=== PATIENT | female | born 1970 | race Caucasian/White ===

== ENCOUNTER → 2020-03-07 13:09 | Outpatient (BNVA) | payer BC, SELFPAY | PROVIDERS: PCP Internal Medicine; Visit Provider Obstetrics & Gynecology | DX: Z76.89 Persons encountering health services in other specified circumstances (principal) ==

== ENCOUNTER 2020-03-14 12:35 | Outpatient (REF) | payer BC, SELFPAY ==
--- NOTE | 2020-03-14 13:07 | US_ITS ---
EXAMINATION: PELVIC ULTRASOUND CLINICAL INFORMATION: Vaginal disorder COMPARISON: Previous CT September 2014 TECHNIQUE: Transabdominal and transvaginal pelvic ultrasound was performed. Transvaginal exam was performed for better visualization of the uterus and ovaries. FINDINGS: The uterus is anteverted and measures 8.9 x 4.2 x 6.1 cm in dimension. Uterine echotexture is slightly heterogeneous. No focal uterine lesion is seen. Endometrial thickness measures 0.8 cm. This would be slightly prominent for a postmenopausal patient. There are nabothian cysts in the cervix. There is a 12.9 x 9.1 x 11.9 cm complex right adnexal cyst. This has a solid component with frond-like projections. This demonstrates vascularity and low resistance waveform. There are 2 adjacent left adnexal cysts versus a single cyst with thickened septation. Measured as 2 cysts, there is a 4.6 x 3.4 x 5.6 cm complex cyst with thick septation and solid component with frond-like projections. Again, solid component demonstrates vascularity and low resistance waveform. There is an adjacent simple 3.4 x 2.3 x 2.5 cm cyst. There is a thick wall or septation the 2 cysts that demonstrates vascularity. This finding is new from previous CT from 2014. There is no fluid in the pelvis. IMPRESSION: Large bilateral complex ovarian cysts, right greater than left. Neoplastic process should be considered. CAREER GUIDANCE TECHNICIAN consultation is recommended. Slightly thickened endometrium for a postmenopausal patient. Findings will be communicated by the [place] work flow physical optics teacher.
--- NOTE | 2020-03-14 13:07 | US_ITS ---
EXAMINATION: PELVIC ULTRASOUND CLINICAL INFORMATION: Vaginal disorder COMPARISON: Previous CT September 2014 TECHNIQUE: Transabdominal and transvaginal pelvic ultrasound was performed. Transvaginal exam was performed for better visualization of the uterus and ovaries. FINDINGS: The uterus is anteverted and measures 8.9 x 4.2 x 6.1 cm in dimension. Uterine echotexture is slightly heterogeneous. No focal uterine lesion is seen. Endometrial thickness measures 0.8 cm. This would be slightly prominent for a postmenopausal patient. There are nabothian cysts in the cervix. There is a 12.9 x 9.1 x 11.9 cm complex right adnexal cyst. This has a solid component with frond-like projections. This demonstrates vascularity and low resistance waveform. There are 2 adjacent left adnexal cysts versus a single cyst with thickened septation. Measured as 2 cysts, there is a 4.6 x 3.4 x 5.6 cm complex cyst with thick septation and solid component with frond-like projections. Again, solid component demonstrates vascularity and low resistance waveform. There is an adjacent simple 3.4 x 2.3 x 2.5 cm cyst. There is a thick wall or septation the 2 cysts that demonstrates vascularity. This finding is new from previous CT from 2014. There is no fluid in the pelvis. IMPRESSION: Large bilateral complex ovarian cysts, right greater than left. Neoplastic process should be considered. DIE ENGRAVING SUPERVISOR consultation is recommended. Slightly thickened endometrium for a postmenopausal patient. Findings will be communicated by the [place] work flow brick grader.
== END 2020-03-14 12:36 | disposition home or self-care (01) ==
LOC: HO.US 12:35
PROVIDERS: PCP Internal Medicine; Visit Provider Obstetrics & Gynecology
DX: N95.0 Postmenopausal bleeding (principal); N89.8 Other specified noninflammatory disorders of vagina
CPT/HCPCS: 76830; 76856

== ENCOUNTER 2021-02-16 10:43 | Outpatient (REF) | payer BC, SELFPAY ==
[2021-02-16 11:30] LABS: MANUAL DIFF FLAG NO
[2021-02-16 11:36] LABS: Basophils Percent Auto 0.9 % (0-2); Eosinophils Percent Auto 0.3 % (0-4); Hemoglobin 10.4 g/dl (12.0-16.0); Imm Gran Abs Auto 0.01 X10*3/uL (0.00-0.03); Imm Gran Pct Auto 0.3 % (0.0-0.4); Lymphocytes Percent Auto 30.2 % (20-40); Mean Corpuscular HGB Conc 32.5 g/dl (31.0-35.0); Mean Corpuscular Hemoglobin 32.8 pg (27.0-33.0); Mean Corpuscular Volume 100.9 fL (80-98); Mean Platelet Volume 10.1 fL (9.4-12.3); Monocytes Absolute Auto 0.3 X10*3/uL (0.1-1.2); Monocytes Percent Auto 7.7 % (2-11); Neutrophils Absolute Auto 2.1 X10*3/uL (2.0-8.3); Neutrophils Percent Auto 60.6 % (45-73); Platelet Count 221 X10*3/uL (160-400); Red Blood Count 3.17 X10*6/uL (4.20-5.50); Red Cell Distribution Width 13.2 % (11.0-16.0); White Blood Count 3.4 X10*3/uL (4.8-10.8)
[2021-02-16 11:38] LABS: INTERNATIONAL NORM RATIO 0.9 (0.9-1.1); Prothrombin Time 10.6 SEC (9.9-13.0)
[2021-02-16 11:41] LABS: Partial Thromboplastin Time 35.1 SEC (24.1-38.0)
[2021-02-16 13:01] LABS: Alanine Aminotransferase 52 U/L (0-31); Albumin Level 4.3 g/dL (3.5-5.0); Alkaline Phosphatase 68 U/L (39-117); Anion Gap 14 (12-20); Aspartate Amino Transferase 35 U/L (5-31); Bilirubin Total 0.5 mg/dL (0.0-1.0); Blood Urea Nitrogen 11 mg/dL (9-16); Calcium 9.6 mg/dL (8.4-10.2); Carbon Dioxide 25 mmol/L (22-29); Chloride 105 mmol/L (96-108); Estimated Glomerular Filt Rate > 60; Glucose Random 94 mg/dL (60-115); Potassium 4.5 mmol/L (3.3-5.1); Sodium 139 mmol/L (135-145); Total Protein 6.7 g/dL (6.5-8.0)
== END 2021-02-16 10:44 | disposition home or self-care (01) ==
LOC: HO.LAB 10:43
PROVIDERS: PCP Internal Medicine; Visit Provider Internal Medicine
DX: Z01.818 Encounter for other preprocedural examination (principal)
CPT/HCPCS: 36415; 80053; 85025; 85610; 85730

== ENCOUNTER 2021-11-21 09:27 | Outpatient (REF) | payer BC, SELFPAY ==
[2021-11-21 11:23] LABS: MANUAL DIFF FLAG NO
[2021-11-21 11:32] LABS: Basophils Percent Auto 0.6 % (0-2); Eosinophils Percent Auto 0.4 % (0-4); Hematocrit 35.9 % (37.0-47.0); Imm Gran Abs Auto 0.01 X10*3/uL (0.00-0.03); Imm Gran Pct Auto 0.2 % (0.0-0.4); Immature Retic Fraction 7.6 % (3.0-15.9); Lymphocytes Absolute Auto 1.1 X10*3/uL (1.2-4.9); Mean Corpuscular HGB Conc 33.4 g/dl (31.0-35.0); Mean Corpuscular Hemoglobin 30.1 pg (27.0-33.0); Mean Platelet Volume 10.5 fL (9.4-12.3); Monocytes Absolute Auto 0.3 X10*3/uL (0.1-1.2); Monocytes Percent Auto 6.2 % (2-11); Neutrophils Absolute Auto 3.9 x10*3/uL (2.0-8.3); Neutrophils Percent Auto 72.6 % (45-73); Platelet Count 216 X10*3/uL (160-400); Red Blood Count 3.99 X10*6/uL (4.20-5.50); Red Cell Distribution Width 12.2 % (11.0-16.0); Retic HGB Equivalent 33.7 pg (30.0-35.0); Reticulocytes Absolute 0.039 X10*6/uL (0.026-0.095); White Blood Count 5.3 X10*3/uL (4.8-10.8)
[2021-11-21 12:01] LABS: Alanine Aminotransferase 21 U/L (0-31); Albumin Level 4.5 g/dL (3.5-5.0); Alkaline Phosphatase 70 U/L (39-117); Anion Gap 10 (12-20); Aspartate Amino Transferase 18 U/L (5-31); Bilirubin Total 1.1 mg/dL (0.0-1.0); Blood Urea Nitrogen 11 mg/dL (9-16); Calcium 9.9 mg/dL (8.4-10.2); Carbon Dioxide 32 mmol/L (22-29); Chloride 102 mmol/L (96-108); Cholesterol 204 mg/dL; Estimated Glomerular Filt Rate > 60; Glucose Random 98 mg/dL (60-115); HDL Cholesterol 68 mg/dL; Iron 120 mcg/dL (30-160); LDL Cholesterol Calculated 113 mg/dl; Percent Iron Saturation 32 % (15-50); Potassium 4.1 mmol/L (3.3-5.1); Sodium 140 mmol/L (135-145); Total Iron Binding Capacity 372 mcg/dL (228-428); Total Protein 7.2 g/dL (6.5-8.0); Triglycerides 118 mg/dL; Unsaturated Iron Binding 252 ug/dL
[2021-11-21 12:06] LABS: Free T4 (Free Thyroxine) 1.01 ng/dL (0.71-1.85); Vitamin D 25-OH Total 36.4 ng/mL (>30)
[2021-11-21 12:20] LABS: Folate 16.2 ng/mL (> or = 4.0); Vitamin B12 298 pg/mL (200-900)
== END 2021-11-21 09:28 | disposition home or self-care (01) ==
LOC: HO.HMGCLDS 09:27
PROVIDERS: Visit Provider Internal Medicine
DX: C56.1 Malignant neoplasm of right ovary (principal); C56.2 Malignant neoplasm of left ovary; D64.9 Anemia, unspecified; E78.00 Pure hypercholesterolemia, unspecified
CPT/HCPCS: 36415; 80053; 80061; 82306; 82607; 82746; 83540; 84439; 84443; 85025; 85045

== ENCOUNTER 2022-11-14 06:56 | Outpatient (REF) | payer BC, SELFPAY ==
[2022-11-14 09:09] LABS: MANUAL DIFF FLAG NO
[2022-11-14 09:23] LABS: Basophils Percent Auto 0.7 % (0-2); Eosinophils Percent Auto 0.5 % (0-4); Hematocrit 33.5 % (37.0-47.0); Hemoglobin 10.7 g/dl (12.0-16.0); Imm Gran Abs Auto 0.01 X10*3/uL (0.00-0.03); Imm Gran Pct Auto 0.2 % (0.0-0.4); Lymphocytes Absolute Auto 1.3 X10*3/uL (1.2-4.9); Lymphocytes Percent Auto 29.4 % (20-40); Mean Corpuscular HGB Conc 31.9 g/dl (31.0-35.0); Mean Corpuscular Hemoglobin 28.3 pg (27.0-33.0); Mean Corpuscular Volume 88.6 fL (80.0-98.0); Mean Platelet Volume 10.5 fL (9.4-12.3); Monocytes Absolute Auto 0.3 X10*3/uL (0.1-1.2); Neutrophils Absolute Auto 2.6 x10*3/uL (2.0-8.3); Neutrophils Percent Auto 61.2 % (45-73); Platelet Count 249 X10*3/uL (160-400); Red Blood Count 3.78 X10*6/uL (4.20-5.50); Red Cell Distribution Width 12.5 % (11.0-16.0); White Blood Count 4.3 X10*3/uL (4.8-10.8)
[2022-11-14 10:00] LABS: Alanine Aminotransferase 22 U/L (0-31); Albumin Level 4.1 g/dL (3.5-5.0); Alkaline Phosphatase 73 U/L (39-117); Anion Gap 13 (12-20); Aspartate Amino Transferase 19 U/L (5-31); Bilirubin Total 0.7 mg/dL (0.0-1.0); Blood Urea Nitrogen 16 mg/dL (9-16); Calcium 9.8 mg/dL (8.4-10.2); Carbon Dioxide 31 mmol/L (22-29); Chloride 104 mmol/L (96-108); Cholesterol 171 mg/dL; Estimated Glomerular Filt Rate > 60; Glucose Random 92 mg/dL (60-115); HDL Cholesterol 47 mg/dL; LDL Cholesterol Calculated 106 mg/dl; Sodium 144 mmol/L (135-145); Total Protein 7.1 g/dL (6.5-8.0); Triglycerides 93 mg/dL
[2022-11-14 10:04] LABS: Free T4 (Free Thyroxine) 0.97 ng/dL (0.71-1.85); Thyroid Stimulating Hormone 1.17 uIU/mL (0.32-4.0); Vitamin D 25-OH Total 25.9 ng/mL (>30)
[2022-11-14 10:21] LABS: Folate 12.2 ng/mL (> or = 4.0); Vitamin B12 320 pg/mL (200-900)
== END 2022-11-14 06:57 | disposition home or self-care (01) ==
LOC: HO.HMGCLDS 06:56
PROVIDERS: PCP Internal Medicine; Visit Provider Internal Medicine
DX: C56.3 Malignant neoplasm of bilateral ovaries (principal); E78.00 Pure hypercholesterolemia, unspecified; E55.9 Vitamin D deficiency, unspecified
CPT/HCPCS: 36415; 80053; 80061; 82306; 82607; 82746; 84439; 84443; 85025

== ENCOUNTER 2023-02-17 14:07 | Outpatient (REF) | payer BC, SELFPAY ==
[2023-02-17 16:03] LABS: MANUAL DIFF FLAG NO
[2023-02-17 16:08] LABS: Basophils Percent Auto 0.7 % (0-2); Eosinophils Percent Auto 0.2 % (0-4); Hematocrit 33.4 % (37.0-47.0); Hemoglobin 11.2 g/dl (12.0-16.0); Imm Gran Abs Auto 0.01 X10*3/uL (0.00-0.03); Imm Gran Pct Auto 0.2 % (0.0-0.4); Immature Retic Fraction 12.7 % (3.0-15.9); Lymphocytes Absolute Auto 1.4 X10*3/uL (1.2-4.9); Lymphocytes Percent Auto 34.4 % (20-40); Mean Corpuscular HGB Conc 33.5 g/dl (31.0-35.0); Mean Corpuscular Hemoglobin 29.8 pg (27.0-33.0); Mean Corpuscular Volume 88.8 fL (80.0-98.0); Mean Platelet Volume 11.3 fL (9.4-12.3); Monocytes Absolute Auto 0.3 X10*3/uL (0.1-1.2); Monocytes Percent Auto 7.5 % (2-11); Neutrophils Absolute Auto 2.4 x10*3/uL (2.0-8.3); Platelet Count 212 X10*3/uL (160-400); Red Blood Count 3.76 X10*6/uL (4.20-5.50); Red Cell Distribution Width 13.3 % (11.0-16.0); Retic HGB Equivalent 33.1 pg (30.0-35.0); Reticulocyte Percent 1.1 % (0.5-1.8); Reticulocytes Absolute 0.043 X10*6/uL (0.026-0.095); White Blood Count 4.2 X10*3/uL (4.8-10.8)
[2023-02-17 16:28] LABS: Iron 78 mcg/dL (30-160); Percent Iron Saturation 23 % (15-50); Total Iron Binding Capacity 345 mcg/dL (228-428); Unsaturated Iron Binding 267 ug/dL
[2023-02-17 16:40] LABS: Ferritin 15 ng/mL (10-250)
== END 2023-02-17 14:08 | disposition home or self-care (01) ==
LOC: HO.HMGCLDS 14:07
PROVIDERS: PCP Internal Medicine; Visit Provider Internal Medicine
DX: D64.9 Anemia, unspecified (principal)
CPT/HCPCS: 36415; 82728; 83540; 85025; 85045

== ENCOUNTER 2023-03-03 16:38 | Outpatient (AMB) | payer BC, SELFPAY ==
[2023-03-03 16:47] VITALS: BP 130/78; PULSE 84; O2SAT 99; BMI 23.7
--- NOTE | 2023-03-03 16:47 | A.OFFPC_ITS ---
Vital Signs 03/03/23 16:47 Height 5 ft 6 in Weight 147 lb BMI 23.7 BP 130/78 Blood Pressure Location Lt brachial Position Sitting Pulse 84 Pulse Source Pulse Oximeter Temp Source Skin Pulse Oximetry (%) 99 Oxygen Delivery Method Room Air Intake Visit Reasons: Anemia Merchandise Handler Required: No Allergies No Known Allergies Allergy (Verified 03/03/23 16:48) Tobacco use date assessed: 03/03/23 Dental Screening Dental Screen Date: 03/03/23 Did you have a dental visit in the last 12 months?: Yes Did you have a dental problem in the last 6 months where you did not have access to dental care?: No Was dental information given to patient?: Patient has dentist HPI Anemia HPI Details 52-year-old female with a history of ova hemanth cancer recurrent major depression and chronic anemia coming in for follow-up. Last seen in October 2022. 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 Patient has been doing good with no nausea no vomiting no chest pains no shortness of breath no bladder symptoms has soft bowels patient notes increase in weight and was concerned about bloating/fluid in the abdomen she does not feel any pain but concerned about the weight gain. Patient will be following up with Oncology mid March. [facility] Medical History Anemia Anxiety Depression Hypercholesterolemia Ileostomy in place Ovarian cancer Ovarian mass Preoperative examination Vitamin D deficiency Surgical History History of exploratory laparotomy (~08/25/20) Status post ELVIA-BSO (~04/13/20) Family History (Updated 11/22/22 @ 13:41 by Lori Roberts MD) Mother Lung cancer Paternal Uncle Heart attack Paternal Grandmother Breast cancer Social History Housing: House Alcohol intake: never Patient Tobacco Use Status: Never used Tobacco e-Cigarette/Vaping Use: Never Used Second Hand Smoke Exposure: Yes service: No Current occupational status: employed Sexual orientation: Straight/Heterosexual Gender identity: Female Cognitive needs: No Hearing needs: No Vision needs: Yes Female Reproductive History Menstrual Age of Menarche: 17 Questionnaire Thrive Questionnaire Date Thrive assessed: 11/22/22 AUDIT C Alcohol Use Questionnaire (AUDIT-C) 1. How often do you have a drink containing alcohol?: Never 3. How often do you have six or more drinks on one occasion?: Never Total Score: 0 Score Reviewed/Action Taken: Yes TOYA-7 AMB Questionnaire TOYA-7 Date TOYA - 7 assessed: 11/22/22 Source: Developed by Drs. Van Srivastava, Carley Thakur, Kt Seay and colleagues, with an educational harriet from [employer]. Physical exam (Primary Care) Vital Signs: Last Vital Signs Pulse 84 03/03/23 16:47 BP 130/78 03/03/23 16:47 Pulse Ox 99 03/03/23 16:47 Oxygen Delivery Method Room Air 03/03/23 16:47 BMI result Body Mass Index 23.7 Tobacco/Smoking Status: Tobacco use Status Tobacco use date assessed 03/03/23 03/03/23 16:48 Patient Tobacco Use Status Never used Tobacco 03/03/23 16:48 e-Cigarette/Vaping Use Never Used 03/03/23 16:48 Thrive Assessment: Date of Thrive Assessment Date Thrive assessed 11/22/22 03/03/23 16:48 Const General: alert; No acute distress Eyes Conjunctivae: conjunctivae normal Resp Auscultation: clear to auscultation bilaterally Cardio Rate: regular rate Rhythm: regular rhythm GI Inspection: Yes normal to inspection Extrem General: Yes normal to inspection and No edema Office Procedures Flu Questionnaire Does the patient have a severe egg allergy?: No Does the patient have severe life threatening allergies?: No Does the patient have a fever or illness today?: No Has the patient ever had Guillain-Woodruff Syndrome?: No Has the patient ever had any past reaction to a flu shot?: No Immunizations flu vacc [id number] 6mos up(PF) 60 mcg(15 mcgx4)/0.5 mL IM syringe Performing Provider: Lori Roberts MD Performing Location: [facility] Administered by: MAAME Parra on 03/03/23 16:53 Dose Route Admin Location Dispensed Lot Number Expiration Date NDC Manager Of Development 0.5 mL IM Left Deltoid 0.5 mL [id number] 11/30/23 [id number] [employer] VIS Given Date VIS Provided VIS Publication Date 03/03/23 Single Vaccine 21 Eligibility Eligibility Date Funding Source Not [facility] Eligible 03/03/23 Private Assessment and Plan Assessment & Plan (1) Ovarian cancer: Comment: stage IIIc 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 (2) Recurrent major depression: Code(s): F33.9 - Major depressive disorder, recurrent, unspecified Plan: Continue with venlafaxine and lorazepam as needed (3) Anemia: Code(s): D64.9 - Anemia, unspecified Qualifiers: Anemia type: unspecified type Qualified Code(s): D64.9 - Anemia, unspecified Plan: Continue to monitor. Orders: Orders Influenza [id number] Immunization Today Z23 - Encounter for immunization Coding Level of Care Code Est Pt Level 4 (06886) Diagnoses Malignant neoplasm of both ovaries C56.1; C56.2 Laterality: bilateral Recurrent major depression F33.9 Anemia, unspecified type D64.9 Anemia type: unspecified type
== END 2023-03-03 17:32 | disposition home or self-care (01) ==
PROVIDERS: PCP Internal Medicine; Visit Provider Internal Medicine
DX: C56.1 Malignant neoplasm of right ovary (principal); C56.2 Malignant neoplasm of left ovary; F33.9 Major depressive disorder, recurrent, unspecified; D64.9 Anemia, unspecified; Z23 Encounter for immunization
CPT/HCPCS: 90471; 90686; 99214

== ENCOUNTER 2023-07-11 12:17 | Outpatient (AMB) | payer BC, SELFPAY ==
[2023-07-11 12:21] VITALS: BP 132/78; PULSE 75; TEMP 36.6; O2SAT 98
--- NOTE | 2023-07-11 12:21 | AM.OFFWIN_ITS ---
Intake Vital Signs 07/11/23 12:21 Height 5 ft 6 in BP 132/78 Blood Pressure Location Lt brachial Position Sitting Pulse 75 Pulse Source Pulse Oximeter Temp 97.8 F Temp Source Oral Pulse Oximetry (%) 98 Oxygen Delivery Method Room Air Intake Visit Reasons: EP ?sinus/ear infection Intake Note: pt is here for c.o possible ear infection and possible sinus infection Patient Tobacco Use Status: Never used Tobacco Allergies No Known Allergies Allergy (Verified 07/11/23 12:22) Do you need a note to return to daycare/school/sports/work: Yes HPI EP ?sinus/ear infection HPI Details This is a 53 year old female patient who presents today with a 1 week history of sinus pressure and left ear pressure, primarily on the left side. She has had some nasal congestion but denies any cough or shortness of breath. Denies know exposure to sick contacts. Denies any fever. [facility] Medical History Anxiety Ovarian cancer Ileostomy in place Preoperative examination Vitamin D deficiency Anemia Ovarian mass Hypercholesterolemia Depression Surgical History History of exploratory laparotomy (~08/25/20) Status post ELVIA-BSO (~04/13/20) Family History Mother Lung cancer Paternal Uncle Heart attack Paternal Grandmother Breast cancer Social History Housing: House Alcohol intake: never Patient Tobacco Use Status: Never used Tobacco e-Cigarette/Vaping Use: Never Used Second Hand Smoke Exposure: Yes service: No Current occupational status: employed Sexual orientation: Straight/Heterosexual Gender identity: Female Cognitive needs: No Hearing needs: No Vision needs: Yes Female Reproductive History Menstrual Age of Menarche: 17 Review of Systems Const All systems reviewed & are unremarkable except as noted in HPI and below Physical Exam Const General: cooperative and no acute distress HEENT Head: Yes normal to inspection Ears: hearing grossly normal bilaterally, external ears normal and TM's normal b ilaterally General nose exam: Normal external nose present and Normal nasal mucous membranes and turbinates present Face and sinus: Yes sinus tenderness (maxillary ttp, L>R) Mouth: Normal oral and palatal mucosa present and oropharynx normal Throat: Yes posterior oropharynx normal Neck Neck: Yes no lymphadenopathy Resp Effort & Inspection: normal respiratory effort Auscultation: clear to auscultation bilaterally Cardio Rate: regular rate Rhythm: regular rhythm Skin General skin exam: no rashes or lesions noted Extrem General: Yes capillary refill normal and Yes no clubbing, cyanosis or edema Psych Appearance: grossly normal Mental Status: mental status grossly normal Speech and movement: Normal speech and movement present Assessment & Plan Assessment & Plan (1) Acute maxillary sinusitis: Code(s): J01.00 - Acute maxillary sinusitis, unspecified Qualifiers: Recurrence: non-recurrent Qualified Code(s): J01.00 - Acute maxillary sinusitis, unspecified Plan: Will start on an antibiotic. Reviewed indications, use, possible side effects of medication. Advised she also start taking an otc decongestant. Encouraged adequate hydration and healthy diet/vitamin intake. She declines any viral testing today. If she does not improve with treatment or if symptoms worsen/new symptoms develop, she can return to the clinic for further evaluation. She verbalizes understanding and agrees to plan. Medications: New azithromycin For 250 mg dose pack: take 500 mg today (day 1), then 250 mg for 4 days (days 2-5) PO. Do not take ondansetron while on this medication. 6 tabs 0RF J01.00 - Acute maxillary sinusitis, unspecified Coding Level of Care Code Est Pt Level 3 (82669) Diagnoses Acute non-recurrent maxillary sinusitis J01.00 Recurrence: non-recurrent
== END 2023-07-11 12:57 | disposition home or self-care (01) ==
PROVIDERS: PCP Internal Medicine; Visit Provider Nurse Practitioner Family
DX: J01.00 Acute maxillary sinusitis, unspecified (principal)
CPT/HCPCS: 99213

== ENCOUNTER 2024-04-01 15:54 | Outpatient (AMB) | payer BC, SELFPAY ==
--- NOTE | 2024-04-01 15:57 | MHC.PC.OV ---
Vital Signs 04/01/24 15:59 04/01/24 16:16 Height 5 ft 6 in BP 152/76 H 138/82 Blood Pressure Location Lt brachial Lt brachial Position Sitting Sitting Pulse 89 Pulse Source Pulse Oximeter Pulse Oximetry (%) 98 Oxygen Delivery Method Room Air Intake Visit Reasons: [facility] 03/11 BP, Electrolyte Imbalance, Headache Intake Note: Patient is here to follow-up after a visit the emergency department at [facility] on 03/11/24 Allergies No Known Allergies Allergy (Verified 04/01/24 15:57) Medication List - Last Reconciled 04/01/24 by Anais Sparks PA-C amlodipine 5 mg PO DAILY lorazepam 1 mg PO TID PRN 90 days magnesium oxide 400 mg PO BID metoprolol tartrate 12.5 mg PO BID ondansetron HCl 8 mg PO TID prochlorperazine maleate 10 mg PO Q6H PRN venlafaxine ER 75 mg PO DAILY 90 days venlafaxine ER 150 mg PO DAILY 90 days Tobacco use date assessed: 01/26/24 Dental Screening Dental Screen Date: 01/26/24 HPI [facility] 03/11 BP, Electrolyte Imbalance, Headache HPI Details 53-year-old female with past medical history of ovarian cancer, recurrent major depression, and anemia last seen by Dr. Roberts January 2024 coming in for hospital discharge follow up.? In review of the notes, patient was seen in [facility] ED 03/11/2024 with high blood pressure and headache and found to have new onset atrial fibrillation admitted for further observation.?Atrial fibrillation likely in the setting of profound electrolyte abnormalities and magnesium and potassium were replaced advised to start metoprolol 25 mg daily. Patient follows with [facility] every 21 days for regular infusions. She has an appointment April 08 and her oncologist we will test for magnesium and potassium prior to the treatment. She has been feeling generally better without any nausea or vomiting and headaches have been improving as well. She has an appointment to see [facility] Cardiology 04/12/2024. She continues to take the metoprolol and amlodipine without any side effects and denies any palpitations or heart racing. [facility] Medical History Anxiety Ovarian cancer Ileostomy in place Preoperative examination Vitamin D deficiency Anemia Ovarian mass Hypercholesterolemia Depression Surgical History History of exploratory laparotomy (~08/25/20) Status post ELVIA-BSO (~04/13/20) Family History Mother Lung cancer Paternal Uncle Heart attack Paternal Grandmother Breast cancer Social History Housing: House Alcohol intake: never Patient Tobacco Use Status: Never used Tobacco e-Cigarette/Vaping Use: Never Used Second Hand Smoke Exposure: Yes service: No Current occupational status: employed Sexual orientation: Straight/Heterosexual Gender identity: Female Cognitive needs: No Hearing needs: No Vision needs: Yes Female Reproductive History Menstrual Age of Menarche: 17 Questionnaire Thrive Questionnaire Date Thrive assessed: 01/26/24 I am a: Patient What is your living situation today?: I have a steady place to live Within the past 12 months, did the food you bought not last and you didn't have the money to get more?: Never true Within the past 12 months, did you worry whether your food would run out before you got money to buy more?: Never true Do you have trouble paying for medicines?: No Do you have trouble getting transportation to medical appointments?: No Do you have trouble paying your heating and electricity bill?: No Do you have trouble taking care of your child, family member or friend?: No Do you have trouble with day-to-day activities such as bathing, preparing meals, shopping, managing finances, etc.?: No Are you currently unemployed and looking for a job?: No Are you interested in more education?: No Please select the resources that you would like help with: None Currently or been in a relationship where the following occur: No concerns reported THRIVE Score: 0 AUDIT C Alcohol Use Questionnaire (AUDIT-C) 1. How often do you have a drink containing alcohol?: Never 3. How often do you have six or more drinks on one occasion?: Never Total Score: 0 TOYA-7 AMB Questionnaire TOYA-7 Date TOYA - 7 assessed: 01/26/24 Source: Developed by Drs. Van Srivastava, Carley Thakur, Kt Seay and colleagues, with an educational harriet from [employer]. Review of Systems Const Denies body aches, Denies chills, Denies fever(s), Denies headache(s) and Denies poor appetite Eyes Reports no additional complaints ENT Denies dizziness and Denies headache(s) Card Denies chest pain, Denies edema, Denies irregular heart rhythm, Denies lightheadedness and Denies dyspnea Resp Denies dyspnea GI Denies abdominal pain, Denies diarrhea, Denies nausea and Denies vomiting Musc Reports no additional complaints and Denies abnormal gait Skin/Breast Reports system reviewed and no additional complaints, except as documented Neuro Denies abnormal gait, Denies dizziness and Denies headache(s) Psych Reports no additional complaints Physical exam (Primary Care) Vital Signs: Last Vital Signs Pulse 89 04/01/24 15:59 BP 138/82 04/01/24 16:16 Pulse Ox 98 04/01/24 15:59 Oxygen Delivery Method Room Air 04/01/24 15:59 Tobacco/Smoking Status: Tobacco use Status Tobacco use date assessed 01/26/24 04/01/24 16:01 Patient Tobacco Use Status Never used Tobacco 04/01/24 16:01 e-Cigarette/Vaping Use Never Used 04/01/24 16:01 Thrive Assessment: Date of Thrive Assessment Date Thrive assessed 01/26/24 04/01/24 16:01 Currently or been in a relationship where the following occur: No concerns reported Const General: cooperative, healthy appearing, comfortable and no acute distress Orientation/consciousness: patient oriented x3 HENMT Head: Yes normocephalic Ears: hearing grossly normal bilaterally General nose exam: Normal external nose present Eyes General: appearance normal, both eyes and all related structures Conjunctivae: conjunctivae normal Neck Neck: Yes full ROM and Yes no lymphadenopathy Resp Effort & Inspection: normal respiratory effort Auscultation: clear to auscultation bilaterally, no crackles, no rales, no rhonchi and no wheezes Cardio Rate: regular rate Rhythm: regular rhythm Skin General skin exam: no rashes or lesions noted Neuro General: patient oriented x3 Gait exam (Neuro): Normal gait present Extrem General: Yes normal to inspection, Yes full ROM and No edema Psych Affect: normal affect Attitude: cooperative Insight: Good insight present (Psych) Judgement: Good judgement present (Psych) Coding Level of Care Code Est Pt Level 3 (70833) Diagnoses Elevated blood pressure reading R03.0 Iron deficiency anemia D50.9 Atrial fibrillation I48.91 Assessment & Plan Assessment & Plan (1) Elevated blood pressure reading: Comment: side effect of chemotehrapy Code(s): R03.0 - Elevated blood-pressure reading, without diagnosis of hypertension Category: Medical Plan: Blood pressure continues to be elevated as a side effect chemotherapy. She continues to follow with her oncologist who is aware of the situation. Advised to continue on amlodipine and metoprolol which has good effect of the blood pressure at this time. (2) Iron deficiency anemia: Code(s): D50.9 - Iron deficiency anemia, unspecified Category: Medical Plan: Continue on iron supplementation and continue to follow up with oncologist. (3) Atrial fibrillation: Code(s): I48.91 - Unspecified atrial fibrillation Category: Medical Plan: Patient was recently admitted to [facility] for new onset atrial fibrillation believed to be induced by found electrolyte abnormality. Electrolytes normalized and patient returned back to normal sinus rhythm advised to follow up with Cardiology per ER recommendation and continue on metoprolol for rate control. Electrolytes will be redrawn at her April 08 appointment by her oncologist. Discussed with patient the importance of staying well hydrated and replete electrolytes. If she experiences nausea and vomiting again to be very cautious and present to the ER for re-evaluation. Plan This note was constructed using voice recognition software. While every effort has been made to ensure accuracy and mattress packer, still areas may have been included sometimes these areas may affect the content or meeting of the given symptoms. Total time spent caring for the patient today was 30 minutes. This includes time spent before the visit reviewing the chart, time spent during the visit, and time spent after the visit and documentation. Medications: New metoprolol tartrate 25 mg PO BID
[2024-04-01 15:59] VITALS: BP 152/76; PULSE 89; O2SAT 98
[2024-04-01 16:16] VITALS: BP 138/82
== END 2024-04-01 16:34 | disposition home or self-care (01) ==
LOC: HO.HMCH 15:54
PROVIDERS: PCP Internal Medicine
DX: R03.0 Elevated blood-pressure reading, without diagnosis of hypertension (principal); D50.9 Iron deficiency anemia, unspecified; I48.91 Unspecified atrial fibrillation

== ENCOUNTER → 2024-04-01 15:54 | Outpatient (BNVA) | payer BC, SELFPAY | PROVIDERS: PCP Internal Medicine ==

== ENCOUNTER 2024-06-05 10:14 | Outpatient (REF) | payer BC, SELFPAY ==
--- NOTE | ~2024-06-05 | XR_ITS ---
CLINICAL HISTORY: SINUSITIS Radiographs of the sinuses, 5 views Comparison: None Findings: No fracture or dislocation. The paranasal sinuses and mastoid air cells are clear. Bone mineralization is normal. No soft tissue swelling. Impression: No radiographic evidence of sinusitis. This document has been electronically signed by: Maryam Medley MD on 06/07/2024 16:29:48
== END 2024-06-05 10:15 | disposition home or self-care (01) ==
LOC: HO.XRAY 10:14
PROVIDERS: PCP Internal Medicine; Visit Provider Otolaryngology
DX: J01.90 Acute sinusitis, unspecified (principal)
CPT/HCPCS: 70220

== ENCOUNTER → 2024-06-05 10:40 | Outpatient (BNV) | payer BC, SELFPAY | PROVIDERS: PCP Internal Medicine; Visit Provider Radiology Diagnostic Radiology | DX: J01.00 Acute maxillary sinusitis, unspecified (principal) | CPT/HCPCS: 70220 ==

== ENCOUNTER 2024-06-07 17:13 | Outpatient (AMB) | payer BC, SELFPAY ==
[2024-06-07 17:16] VITALS: BP 148/88; PULSE 81; O2SAT 98; BMI 22.9
--- NOTE | 2024-06-07 17:16 | MHC.PC.OV ---
Vital Signs 06/07/24 17:16 Height 5 ft 6 in Weight 142 lb BMI 22.9 BP 148/88 H Blood Pressure Location Lt brachial Position Sitting Pulse 81 Pulse Source Pulse Oximeter Pulse Oximetry (%) 98 Oxygen Delivery Method Room Air Intake Visit Reasons: anemia Allergies No Known Allergies Allergy (Verified 06/07/24 17:17) Medication List - Last Reconciled 06/07/24 by Lori Roberts MD amlodipine 5 mg PO DAILY lorazepam 1 mg PO TID PRN 90 days metoprolol tartrate 25 mg PO BID ondansetron HCl 8 mg PO TID venlafaxine ER 75 mg PO DAILY 90 days venlafaxine ER 150 mg PO DAILY 90 days Tobacco use date assessed: 06/07/24 Dental Screening Dental Screen Date: 06/07/24 Did you have a dental visit in the last 12 months?: Yes Did you have a dental problem in the last 6 months where you did not have access to dental care?: No Was dental information given to patient?: Patient has dentist HPI anemia HPI Details 54-year-old female with a history of ovarian cancer recurrent major depression iron deficiency anemia atrial fibrillation last seen earlier this year review of the notes continues to have chemotherapy and had nausea and vomiting and was in the emergency room found to have atrial fibrillation with rapid ventricular rate. Patient was also found to have hypokalemia as well as hypomagnesemia. Replacement done and patient converted back to normal sinus. Patient has met with Cardiology and ejection fraction if it is normal with no valvular abnormality. Patient was advised aspirin and no long-term anticoagulation unless recurrence of atrial fibrillation. Patient was advised to keep magnesium above 2 and potassium above 4. Patient comes here for follow-up with blood work showing potassium P before magnesium to be 1.6 but no additional magnesium given. Patient also had blood work done in that hospital [facility] showing hypercholesterolemia to 185 LDL but no treatment done. As for the blood pressure patient was supposed to be on the notes change from amlodipine to metoprolol but patient comes in with both metoprolol and amlodipine. But the blood pressure has run high also patient otherwise feels good [facility] Medical History (Updated 06/07/24 @ 17:49 by Lori Roberts MD) Anxiety Ovarian cancer Ileostomy in place Preoperative examination Vitamin D deficiency Anemia Ovarian mass Hypercholesterolemia Depression Surgical History History of exploratory laparotomy (~08/25/20) Status post [facility]-BSO (~04/13/20) Family History Mother Lung cancer Paternal Uncle Heart attack Paternal Grandmother Breast cancer Social History Housing: House Alcohol intake: never Patient Tobacco Use Status: Never used Tobacco Tobacco use type: Cigarette e-Cigarette/Vaping Use: Never Used Second Hand Smoke Exposure: Yes service: No Current occupational status: employed Sexual orientation: Straight/Heterosexual Gender identity: Female Cognitive needs: No Hearing needs: No Vision needs: Yes Female Reproductive History Menstrual Age of Menarche: 17 Questionnaire PHQ-9 Over the last 2 weeks, how often have you been bothered by any of the following problems? 1. Little interest or pleasure in doing things: not at all 2. Feeling down, depressed, or hopeless: not at all 3. Trouble falling or staying asleep, or sleeping too much: not at all 4. Feeling tired or having little energy: not at all 5. Poor appetite or overeating: not at all 6. Feeling bad about yourself - or that you are a failure or have let yourself or your family down: not at all 7. Trouble concentrating on things, such as reading the newspaper or watching television: not at all 8. Moving or speaking so slowly that other people could have noticed. Or the opposite - being so fidgety or restless that you have been moving around a lot more than usual: not at all 9. Thoughts that you would be better off or of hurting yourself in some way: not at all Total score: 0 Depression Screening Interpretation: Negative Depression Screening Done: Yes 29341 - PHQ-9 Billing: Yes Source: Developed by Drs. Van Srivastava, Carley Thakur, Kt Seay and colleagues, with an educational harriet from [employer]. Thrive Questionnaire Date Thrive assessed: 06/07/24 I am a: Patient What is your living situation today?: I have a steady place to live Within the past 12 months, did the food you bought not last and you didn't have the money to get more?: Never true Within the past 12 months, did you worry whether your food would run out before you got money to buy more?: Never true Do you have trouble paying for medicines?: No Do you have trouble getting transportation to medical appointments?: No Do you have trouble paying your heating and electricity bill?: No Do you have trouble taking care of your child, family member or friend?: No Do you have trouble with day-to-day activities such as bathing, preparing meals, shopping, managing finances, etc.?: No Are you currently unemployed and looking for a job?: No Are you interested in more education?: No Please select the resources that you would like help with: None Currently or been in a relationship where the following occur: No concerns reported THRIVE Score: 0 AUDIT C Alcohol Use Questionnaire (AUDIT-C) 1. How often do you have a drink containing alcohol?: Never 3. How often do you have six or more drinks on one occasion?: Never Total Score: 0 TOYA-7 AMB Questionnaire TOYA-7 Date TOYA - 7 assessed: 06/07/24 Feeling nervous, anxious, or on edge: 0 = Not at all Not being able to stop or control worryin = Not at all Worrying too much about different things: 0 = Not at all Trouble relaxin = Not at all Being so restless that it is hard to sit still: 0 = Not at all Becoming easily annoyed or irritable: 0 = Not at all Feeling afraid as if something awful might happen: 0 = Not at all Total TOYA-7 score (0-4 normal; 5-9 mild; 10-14 moderate; 15-21 severe): 0 Source: Developed by Drs. Van Srivastava, Carley Thakur, Kt Seay and colleagues, with an educational harriet from [employer]. Physical exam (Primary Care) Vital Signs: Last Vital Signs Pulse 81 06/07/24 17:16 BP 148/88 H 06/07/24 17:16 Pulse Ox 98 06/07/24 17:16 Oxygen Delivery Method Room Air 06/07/24 17:16 BMI result Body Mass Index 22.9 Tobacco/Smoking Status: Tobacco use Status Tobacco use date assessed 06/07/24 06/07/24 17:23 Patient Tobacco Use Status Never used Tobacco 06/07/24 17:23 Tobacco use type Cigarette 06/07/24 17:23 e-Cigarette/Vaping Use Never Used 06/07/24 17:23 PHQ-9: PHQ-9 Score PHQ-9: Total score 0 06/07/24 17:23 Depression Screening Interpretation: Negative Thrive Assessment: Date of Thrive Assessment Date Thrive assessed 06/07/24 06/07/24 17:23 Currently or been in a relationship where the following occur: No concerns reported Const General: alert; No acute distress Eyes Conjunctivae: conjunctivae normal Resp Auscultation: clear to auscultation bilaterally Cardio Rate: regular rate Rhythm: regular rhythm GI Inspection: Yes normal to inspection Extrem General: Yes normal to inspection and No edema Coding Level of Care Code Est Pt Level 4 (20339) Complex EM visit Add On G2211 Diagnoses Atrial fibrillation I48.91 Iron deficiency anemia D50.9 Malignant neoplasm of both ovaries C56.1; C56.2 Laterality: bilateral Recurrent major depression F33.9 Hypercholesterolemia E78.00 Hypertension I10 Additional Codes PHQ-9 - 96361 - PHQ-9 Billing: Yes ([id number]) Assessment & Plan Assessment & Plan (1) Atrial fibrillation: Comment: 04/2024 hypokalemia and hypomagnesemia, secondary chemotherapy Code(s): I48.91 - Unspecified atrial fibrillation Category: Medical Plan: Deemed to be secondary to chemotherapy having nausea and vomiting and hypokalemia and hypomagnesemia. If this happens again then will need lifelong anticoagulation. 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 (4) Recurrent major depression: Comment: decline counselling Code(s): F33.9 - Major depressive disorder, recurrent, unspecified Category: Medical Plan: Continue with present medication (5) Hypercholesterolemia: Code(s): E78.00 - Pure hypercholesterolemia, unspecified Category: Medical Plan: With the new changes in cholesterol labs will do repeat fasting blood work (6) Hypertension: Code(s): I10 - Essential (primary) hypertension Category: Medical Plan: With the blood pressure being elevated will continue with the amlodipine but increase the metoprolol to 50 mg twice a day and follow-up. Orders: Orders Lipid Panel Today E78.00 - Pure hypercholesterolemia, unspecified Complete Blood Count Auto Diff Today E78.00 - Pure hypercholesterolemia, unspecified Magnesium Today E78.00 - Pure hypercholesterolemia, unspecified Phosphorus Today E78.00 - Pure hypercholesterolemia, unspecified Thyroid Stimulating Hormone Today E78.00 - Pure hypercholesterolemia, unspecified Vitamin B12 and Folate Today E78.00 - Pure hypercholesterolemia, unspecified Vitamin D 25-OH Total Today E78.00 - Pure hypercholesterolemia, unspecified Comprehensive Met. Panel Today E78.00 - Pure hypercholesterolemia, unspecified Free T4 (Free Thyroxine) Today E78.00 - Pure hypercholesterolemia, unspecified Medications: New metoprolol tartrate 50 mg PO BID 60 tabs 4RF I10 - Essential (primary) hypertension
== END 2024-06-07 17:56 | disposition home or self-care (01) ==
PROVIDERS: PCP Internal Medicine; Visit Provider Internal Medicine
DX: I48.91 Unspecified atrial fibrillation (principal); C56.1 Malignant neoplasm of right ovary; C56.2 Malignant neoplasm of left ovary; F33.9 Major depressive disorder, recurrent, unspecified; D50.9 Iron deficiency anemia, unspecified; E78.00 Pure hypercholesterolemia, unspecified; I10 Essential (primary) hypertension

== ENCOUNTER → 2024-06-07 17:13 | Outpatient (BNVA) | payer BC, SELFPAY | PROVIDERS: PCP Internal Medicine; Visit Provider Internal Medicine | DX: I48.91 Unspecified atrial fibrillation (principal); D50.9 Iron deficiency anemia, unspecified; C56.1 Malignant neoplasm of right ovary; C56.2 Malignant neoplasm of left ovary; F33.9 Major depressive disorder, recurrent, unspecified; E78.00 Pure hypercholesterolemia, unspecified; I10 Essential (primary) hypertension; Z79.899 Other long term (current) drug therapy | CPT/HCPCS: 96127 ==

== ENCOUNTER 2024-06-24 11:47 | Outpatient (AMB) | payer BC, SELFPAY ==
--- NOTE | 2024-06-24 11:47 | A.OFFPC_ITS ---
Intake Visit Reasons: Cold Symptoms [id number] Intake Note: Patient is taking Dayquil/Nyquil PRN. Allergies No Known Allergies Allergy (Verified 06/24/24 11:48) Tobacco use date assessed: 06/07/24 Dental Screening Dental Screen Date: 06/07/24 HPI Cold Symptoms [id number] HPI Details headache sneezing, cough, 1 week, no fevers, chills,, non productive , nild sob , covid 19 negative The patient is a 54-year-old female presenting with symptoms of an acute respir atory illness. She reports that her symptoms began approximately one week ago. Symptoms include a severe headache, rhinorrhea, sneezing, and cough causing rib and back pain. Although she initially had a fever, it is no longer present; however, she experiences occasional chills. The patient reports that her symptoms appear to be worsening over the past week. She has noticed mild shortness of breath. There has been no significant alleviation despite self-care measures. She has tested negative for COVID-19. No previous diagnosis or treatment for these symptoms has been reported. - Respiratory: Reports mild shortness of breath, denies any significant dyspnea. - General: Reports chills, previously re ported fever which is now resolved. - Musculoskeletal: Reports rib and back pain secondary to coughing. - HEENT: Reports severe headache. [facility] Medical History (Updated 06/24/24 @ 12:15 by Lori Roberts MD) Anxiety Ovarian cancer Ileostomy in place Preoperative examination Vitamin D deficiency Anemia Ovarian mass Hypercholesterolemia Depression Surgical History History of exploratory laparotomy (~08/25/20) Status post [facility]-BSO (~04/13/20) Family History Mother Lung cancer Paternal Uncle Heart attack Paternal Grandmother Breast cancer Social History Housing: House Alcohol intake: never Patient Tobacco Use Status: Never used Tobacco Tobacco use type: Cigarette e-Cigarette/Vaping Use: Never Used Second Hand Smoke Exposure: Yes service: No Current occupational status: employed Sexual orientation: Straight/Heterosexual Gender identity: Female Cognitive needs: No Hearing needs: No Vision needs: Yes Female Reproductive History Menstrual Age of Menarche: 17 Questionnaire PHQ-9 Over the last 2 weeks, how often have you been bothered by any of the following problems? 1. Little interest or pleasure in doing things: not at all 2. Feeling down, depressed, or hopeless: not at all 3. Trouble falling or staying asleep, or sleeping too much: not at all 4. Feeling tired or having little energy: not at all 5. Poor appetite or overeating: not at all 6. Feeling bad about yourself - or that you are a failure or have let yourself or your family down: not at all 7. Trouble concentrating on things, such as reading the newspaper or watching television: not at all 8. Moving or speaking so slowly that other people could have noticed. Or the opposite - being so fidgety or restless that you have been moving around a lot more than usual: not at all 9. Thoughts that you would be better off or of hurting yourself in some way: not at all Total score: 0 Depression Screening Interpretation: Negative Depression Screening Done: Yes 99012 - PHQ-9 Billing: Yes Source: Developed by Drs. Van Srivastava, Carley Thakur, Kt Seay and colleagues, with an educational harriet from [employer] Thrive Questionnaire Date Thrive assessed: 06/07/24 AUDIT C Alcohol Use Questionnaire (AUDIT-C) 1. How often do you have a drink containing alcohol?: Never 3. How often do you have six or more drinks on one occasion?: Never Total Score: 0 TOYA-7 AMB Questionnaire TOYA-7 Date TOYA - 7 assessed: 06/07/24 Source: Developed by Drs. Van Srivastava, Carley Thakur, Kt Seay and colleagues, with an educational harriet from [employer] Physical exam (Primary Care) Tobacco/Smoking Status: Tobacco use Status Tobacco use date assessed 06/07/24 06/24/24 11:48 Patient Tobacco Use Status Never used Tobacco 06/24/24 11:48 Tobacco use type Cigarette 06/24/24 11:48 e-Cigarette/Vaping Use Never Used 06/24/24 11:48 PHQ-9: PHQ-9 Score PHQ-9: Total score 0 06/24/24 11:48 Depression Screening Interpretation: Negative Thrive Assessment: Date of Thrive Assessment Date Thrive assessed 06/07/24 06/24/24 11:48 Telehealth Telehealth Location of provider rendering services: practice address Location of patient: address on file Patient Identification confirmed using: Name, : Yes Telehealth method: voice only (Android) Patient verbally consented to treatment: Yes Patient verbally consented to billing insurance company: Yes Patient informed of any privacy concerns related to visit: Yes Minutes spent on Phone/Video with Pt.: 15 Coding Level of Care Code Tele Est Pt Level 3 (47180) Diagnoses Upper respiratory infection J06.9 Additional Codes PHQ-9 - 92464 - PHQ-9 Billing: Yes ([id number]) Assessment & Plan Assessment & Plan (1) Upper respiratory infection: Code(s): J06.9 - Acute upper respiratory infection, unspecified Category: Medical Plan - Prescribe antibiotic therapy based on clinical suspicion of bacterial involvement but . - Recommend further testing for Influenza and respiratory syncytial virus RSV) at the hospital. - Ensure antibiotic prescription is filled at the pharmacy, instruct on dosing regimen: two tablets on the first day, followed by one tablet daily for the next four days. The patient and I discussed the likely viral etiology of her symptoms, with considerations for influenza and RSV, based on prevalent local respiratory infections. I emphasized the importance of ruling out these conditions through testing at the hospital. A decision was made to prescribe an antibiotic due to the severity and persistence of symptoms, given her history and the fact that a foster child in her household was diagnosed with the flu and an ear infection. She consented to the treatment plan, including the antibiotic regimen. I advised her regarding monitoring symptoms and discussed potential reasons for further evaluation. - Take the prescribed antibiotics as directed: two tablets on the first day, then one daily for the next four days. - Maintain hydration, ensure to drink ample water. - Visit the hospital for additional testing for Influenza and RSV. - Monitor symptoms and seek further medical care if there is no improvement or if symptoms worsen. 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 Orders: Orders SARS-CoV2/FLU/RSV Today J06.9 - Acute upper respiratory infection, unspecified Medications: New azithromycin (Zithromax) For 250 mg dose pack: take 500 mg today (day 1), then 250 mg for 4 days (days 2-5) PO 6 tabs 0RF J06.9 - Acute upper respiratory infection, unspecified
== END 2024-06-24 12:38 | disposition home or self-care (01) ==
LOC: HO.HMCH 11:47
PROVIDERS: PCP Internal Medicine; Visit Provider Internal Medicine
DX: J06.9 Acute upper respiratory infection, unspecified (principal)

== ENCOUNTER → 2024-06-24 11:47 | Outpatient (BNVA) | payer BC, SELFPAY | PROVIDERS: PCP Internal Medicine; Visit Provider Internal Medicine | DX: J06.9 Acute upper respiratory infection, unspecified (principal) | CPT/HCPCS: 96127 ==

== ENCOUNTER 2024-06-25 11:26 | Outpatient (REF) | payer BC, SELFPAY ==
[2024-06-25 12:27] LABS: Basophils Percent Auto 0.4 % (0-2); Eosinophils Percent Auto 0.4 % (0-4); Hematocrit 35.7 % (37.0-47.0); Hemoglobin 11.7 g/dl (12.0-16.0); Imm Gran Abs Auto 0.01 X10*3/uL (0.00-0.03); Imm Gran Pct Auto 0.4 % (0.0-0.4); Immature Retic Fraction 8.4 % (3.0-15.9); Lymphocytes Absolute Auto 1.4 X10*3/uL (1.2-4.9); Lymphocytes Percent Auto 56.6 % (20-40); MANUAL DIFF FLAG SCAN; Mean Corpuscular HGB Conc 32.8 g/dl (31.0-35.0); Mean Corpuscular Hemoglobin 30.5 pg (27.0-33.0); Mean Platelet Volume 10.2 fL (9.4-12.3); Monocytes Absolute Auto 0.2 X10*3/uL (0.1-1.2); Monocytes Percent Auto 7.2 % (2-11); Neutrophils Absolute Auto 0.9 x10*3/uL (2.0-8.3); Platelet Count 150 X10*3/uL (160-400); Red Blood Count 3.84 X10*6/uL (4.20-5.50); Red Cell Distribution Width 12.8 % (11.0-16.0); Retic HGB Equivalent 30.8 pg (30.0-35.0); Reticulocyte Percent 0.8 % (0.5-1.8); Reticulocytes Absolute 0.029 X10*6/uL (0.026-0.095); SCAN SMEAR FLAG 1
[2024-06-25 12:28] LABS: White Blood Count 2.5 X10*3/uL (4.8-10.8)
[2024-06-25 12:55] LABS: SLIDE REVIEW VERIFIED
[2024-06-25 13:15] LABS: Influenza A PCR POSITIVE (Negative); Influenza B PCR NEGATIVE (Negative); Resp Syncy Virus RNA Qual PCR NEGATIVE (Negative); SARS COV2 PCR INHOUSE NEGATIVE (Negative)
--- OUTSIDE RECORDS SUMMARY | 2024-06-25 13:41 | XMS_ITS | Clinical Summary ---
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 Name Role Phone Lori Roberts MD Primary Care Provider [phone] Allergies No known active allergies Medications ondansetron (ZOFRAN) 8 MG tablet Take 8 mg by mouth every 8 (eight) hours if needed for nausea or vomiting Active prochlorperazine (COMPAZINE) 10 MG tablet Take 10 mg by mouth every 6 (six) hours if needed for nausea or vomiting Active ibuprofen (ADVIL,MOTRIN) 600 MG tablet Take 600 mg by mouth every 6 (six) hours if needed for mild pain Active PARoxetine (PAXIL) 40 MG tablet Take 40 mg by mouth at bed time Active lidocaine (LIDODERM) 5 % patch APPLY 1 PATCH TOPICALLY DAILY 0 Active LORazepam (ATIVAN) 1 MG tablet Take 1 mg by mouth 2 (two) times a day if needed 0 Active ondansetron ODT (ZOFRAN-ODT) 4 MG dispersible tablet TAKE 1 TABLET BY MOUTH EVERY 8 HOURS NEEDED FOR NAUSEA/VOMITIN G 0 Active Active Problems Problem Noted Date Diagnosed Date Anxiety 05/04/2020 Depressive disorder 05/04/2020 Ovarian cancer 05/04/2020 Social History Tobacco Use Types Packs/Day Years Used Date Smoking Tobacco: Never Assessed Comments Unknown Sex and Gender Information Value Date Recorded Sex Assigned at Not on file Legal Sex Female 1:14 PM EST Gender Identity Not on file Sexual Orientation Not on file Last Filed Vital Signs Vital Sign Reading Time Taken Comments Blood Pressure 105/69 05/10/2020 2:11 PM EST Pulse 113 05/10/2020 2:11 PM EST Temperature 36.2 ??C (97.1 ??F) 05/10/2020 2:11 PM ES T Respiratory Rate 12 05/10/2020 2:11 PM EST Oxygen Saturation 97% 05/10/2020 2:11 PM EST Inhaled Oxygen Concentration - - Weight 59 kg (130 lb) 05/10/2020 2:11 PM EST Height 170.2 cm (5' 7 ) 05/10/2020 2:11 PM EST Body Mass Index 20.36 05/10/2020 2:11 PM EST Plan of Treatment Health Maintenance Due Date Last Done Comments Breast Cancer Screening 1968 Pneumococcal Vaccine: Pediat rics (0 to 5 Years) and At-Risk Patients (6 to 64 Years) (1 of 2 - PCV) 1974 Hepatitis B Vaccine (1 of 3 - 19+ 3-dose series) 06/07 Colorectal Cancer Screening: Annual FOBT 2017 Colorectal Cancer Screening: Colonoscopy 2017 Colorectal Cancer Screening: Sigmoidoscopy 2017 Influenza Vaccine (#1) 2024 Insurance [facility] Care Teams Machinist 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
--- OUTSIDE RECORDS SUMMARY | 2024-06-25 13:41 | XMS_ITS | Clinical Summary ---
Author Organization [facility] [place] [facility] Address [address] [place] [address] Phone Care Team Providers Care Pewter Fabricator Name Role Phone Lori Roberts MD Primary Care Provider [phone] Allergies No known active allergies Medications Medication Sig Dispensed Refills Start Date End Date Status metoprolol succinate (TOPROL-XL) 25 mg 24 hr tablet Take 1 tablet (25 mg total) by mouth 2 (two) times a day. Do not crush or chew. Active amLODIPine (NORVASC) 5 mg tablet Take 1 tablet (5 mg total) by mouth 1 (one) time each day. Active venlafaxine XR (EFFEXOR-XR) 150 mg 24 hr capsule Take 1 capsule (150 mg total) by mouth 1 (one) time each day. Do not crush or chew. Active venlafaxine XR (EFFEXOR-XR) 75 mg 24 hr capsule Take 1 capsule (75 mg total) by mouth 1 (one) time each day. Do not crush or chew. Active Active Problems Problem Noted Date Diagnosed Date New onset a-fib 04/08/2024 Overview (04/12/2024): 03/2024 in the setting of hypokalemia and hypomagnesemia Assessment & Plan (04/12/2024 8:46 AM EST): The patient clinically has not had recurrence of her atrial fibrillation. She does have a watch that has heart rate monitoring capabilities and has not noted any heart rates sustained greater than 110 bpm. Her electrolytes are followed by her PCP and oncology team. We recommend maintaining potassium greater than 4 and magnesium greater than 2. She has been using electrolyte beverages. Have asked her to review these with her oncology team as she does note that she has some proteinuria affecting her chemotherapy plan just to ensure that these drinks are not contributing to her proteinuria. I have also encouraged her to eat a variety of fruits and vegetables. We discussed how the winter months can often be challenging in the [place] area to obtain fresh fruits and vegetables. Instead, I recommended use of flash frozen fruits and vegetables without any creams or sauces or additives. The patient and her understand this and will look to ensure that they are eating a colorful and balanced diet. She will continue her metoprolol at current dose. She will notify us if she has any sustained elevation in her heart rates or any other symptoms. HTN (hypertension) 04/08/2024 Overview (04/12/2024): [place] to be related to her chemotherapy plan Assessment & Plan (04/12/2024 8:46 AM EST): The patient's blood pressure is well-controlled on her combination of beta- tavon and calcium channel tavon. Continue the same. 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) Anxiety and depression Social History Tobacco Use Types Packs/Day Years Used Date Smoking Tobacco: Never Smokeless Tobacco: Never Tobacco Cessation:Counseling Given: Not Answered Alcohol Use Standard Drinks/Week Comments Never 0 (1 standard drink = 0.6 oz pur e alcohol) Sex and Gender Information Value Date Recorded Sex Assigned at Not on file Gender Identity Not on file Sexual Orientation Not on file Job Start Date Occupation Industry Not on file Not on file Not on file Obstetrics History Last Filed Vital Signs Vital Sign Reading Time Taken Comments Blood Pressure 120/60 04/12/2024 8:12 AM EST Pulse 74 04/12/2024 8:12 AM EST Temperature - - Respiratory Rate - - Oxygen Saturation 97% 04/12/2024 8:12 AM EST Inhaled Oxygen Concentration - - Weight 65.3 kg (144 lb) 04/12/2024 8:12 AM EST Height 167.6 cm (5' 6 ) 04/12/2024 8:12 AM EST Body Mass Index 23.24 04/12/2024 8:12 AM EST Plan of Treatment Health Maintenance Due Date Last Done Comments Breast Cancer Screening 1968 Hepatitis B Vaccines (1 of 3 - 19+ 3-dose series) 1987 Zoster Vaccines (1 of 2) 1987 Cervical Cancer Screening: Pap Smear 1989 Pneumococcal Vaccine: Pediatrics (0 to 5 Years) and At-Risk Patients (6 to 64 Years) (2 of 2 - PCV) 11/20/2022 11/20/2021 COVID-19 Vaccine (4 - 2023- season) 2024 06/15/2021, 11/05/2020, 10/15/2020 Cholesterol Screening (Lipid Panel) 03/31/2024 Colorectal Cancer Screening: Colonoscopy 03/31/2024 Depression Screening 03/31/2024 HIV Screening 03/31/2024 Hepatitis C Screening 03/31/2024 Social Influencers of Health Screening 03/31/2024 Hypertension/CHF/CAD Annual BMP Blood Test 04/08/2024 DTaP,Tdap,and Td Vaccines (2 - Td or Tdap) 12/06/2029 12/07/2019 Influenza Vaccine Completed 03/27/2024, , 05/13/2022, Additional history exists HIB Vaccines Aged Out No longer eligi ble based on patient's age to complete this topic HPV Vaccines Aged Out No longer eligi ble based on patient's age to complete this topic Hepatitis A Vaccines Aged Out No long er eligible based on patient's age to complete this topic IPV Vaccines Aged Out No longer eligi ble based on patient's age to complete this topic MMR Vaccines Aged Out No longer eligi ble based on patient's age to complete this topic Meningococcal ACWY Vaccine Aged Out N o longer eligible based on patient's age to complete this topic RSV Immunization Patients Under 20 months Aged Out No longer eligible based on patient's age to complete this topic Varicella Vaccines Aged Out No longer eligible based on patient's age to complete this topic Procedures Procedure Name Priority Date/Time Associated Diagnosis Comments ECG 12-LEAD Routine 04/12/2024 8:39 AM EST New onset a-fib (CMS/HCC) from Last 3 Months Results * ECG 12 lead (04/12/2024 8:39 AM EST) Ventricular Rate ECG 74 BPM GEMUSE Atrial Rate 74 BPM GEMUSE P-R Interval 138 ms GEMUSE QRS Duration 76 ms GEMUSE Q-T Interval 370 ms GEMUSE QTc 410 ms GEMUSE P Wave [place] 45 degrees GEMUSE R [place] 51 degrees GEMUSE T [place] 70 degrees GEMUSE ECG Interpretation Normal sinus rhythm Normal ECG No previous ECGs available Confirmed by Chris PARKS YUFENG ([id number]) on 04/12/2024 3:33:45 PM GEMUSE 04/12/2024 8:17 AM EST 04/12/2024 3:33 PM EST Loraine Downey NP ECG ORDERABLES GEMUSE from Last 3 Months Care Teams Pewter Fabricator Relationship Specialty Start Date End Date Lori Roberts MD [address] [place] [address] [address] [facility] [place] [address] PCP - General Internal Medicine 03/30/24
[2024-06-25 13:45] LABS: Folate 15.9 ng/mL (> or = 4.0); Vitamin B12 342 pg/mL (200-900)
[2024-06-25 15:00] LABS: Alanine Aminotransferase 20 U/L (0-31); Albumin Level 3.4 g/dL (3.5-5.0); Alkaline Phosphatase 59 U/L (39-117); Anion Gap 14 (12-20); Aspartate Amino Transferase 28 U/L (5-31); Bilirubin Total 0.2 mg/dL (0.0-1.0); Blood Urea Nitrogen 14 mg/dL (9-16); Calcium 9.1 mg/dL (8.4-10.2); Carbon Dioxide 29 mmol/L (22-29); Chloride 106 mmol/L (96-108); Cholesterol 207 mg/dL (<200); Estimated Glomerular Filt Rate > 60; Glucose Random 90 mg/dL (60-115); HDL Cholesterol 51 mg/dL (>40); Iron 48 mcg/dL (30-160); LDL Cholesterol Calculated 120 mg/dL (<100); Magnesium 1.7 mg/dL (1.6-2.6); Percent Iron Saturation 17 % (15-50); Phosphorus 3.2 mg/dL (2.7-4.5); Potassium 3.6 mmol/L (3.3-5.1); Sodium 145 mmol/L (135-145); Total Iron Binding Capacity 276 mcg/dL (228-428); Total Protein 6.6 g/dL (6.5-8.0); Triglycerides 180 mg/dL (<150); Unsaturated Iron Binding 228 ug/dL
[2024-06-25 15:18] LABS: Ferritin 109 ng/mL (10-250); Free T4 (Free Thyroxine) 0.97 ng/dL (0.71-1.85); Thyroid Stimulating Hormone 0.74 uIU/mL (0.32-4.0)
== END 2024-06-25 11:27 | disposition home or self-care (01) ==
LOC: HO.LAB 11:26
PROVIDERS: PCP Internal Medicine; Visit Provider Internal Medicine
DX: R19.5 Other fecal abnormalities (principal); E78.00 Pure hypercholesterolemia, unspecified; J06.9 Acute upper respiratory infection, unspecified
CPT/HCPCS: 0241U; 80053; 80061; 82306; 82607; 82728; 82746; 83540; 83735; 84100; 84439; 84443; 85025; 85045

== ENCOUNTER 2024-09-28 16:10 | Outpatient (AMB) | payer BC, SELFPAY ==
[2024-09-28 16:23] VITALS: BP 126/80; PULSE 71; RESP 18; TEMP 36.4; O2SAT 97; BMI 22.5
--- NOTE | 2024-09-28 16:23 | A.OFFPC_ITS ---
Vital Signs 09/28/24 16:23 Height 5 ft 6 in Weight 139 lb 6.4 oz BMI 22.5 BP 126/80 Blood Pressure Location Lt brachial Position Sitting Respiration 18 Pulse 71 Pulse Source Pulse Oximeter Temp 97.5 F Temp Source Temporal Artery Scan Pulse Oximetry (%) 97 Oxygen Delivery Method Room Air Intake Visit Reasons: annual exam Instructional Materials Director Required: No Accompanied by: Self / Same As Patient Allergies bevacizumab [From Avastin] Adverse Reaction (Intermediate, Unverified 09/28/24 17:00) urinary protein Medication List - Last Reconciled 09/28/24 by Lori Roberts MD amlodipine 5 mg PO DAILY lorazepam 1 mg PO TID PRN 90 days metoprolol tartrate 50 mg PO BID venlafaxine ER 150 mg PO DAILY 90 days venlafaxine ER 75 mg PO DAILY 90 days Tobacco use date assessed: 09/28/24 Dental Screening Dental Screen Date: 09/28/24 Did you have a dental visit in the last 12 months?: Yes Did you have a dental problem in the last 6 months where you did not have access to dental care?: No Was dental information given to patient?: Patient has dentist HPI annual exam HPI Details new chemo planned and CT scan done gemcitabine. urgent center last week - strep throat- treated with amox. but scratch throat, tickly throat, no fevers, PFSH Medical History (Updated 06/24/24 @ 12:15 by Lori Roberts MD) Anxiety Ovarian cancer Ileostomy in place Preoperative examination Vitamin D deficiency Anemia Ovarian mass Hypercholesterolemia Depression Surgical History History of exploratory laparotomy (~08/25/20) Status post ELVIA-BSO (~04/13/20) Family History Mother Lung cancer Paternal Uncle Heart attack Paternal Grandmother Breast cancer Social History Housing: House Alcohol intake: never Patient Tobacco Use Status: Never used Tobacco Tobacco use type: Cigarette e-Cigarette/Vaping Use: Never Used Second Hand Smoke Exposure: Yes service: No Current occupational status: employed Sexual orientation: Straight/Heterosexual Gender identity: Female Cognitive needs: No Hearing needs: No Vision needs: Yes (Glasses) Female Reproductive History Menstrual Age of Menarche: 17 Questionnaire PHQ-9 Over the last 2 weeks, how often have you been bothered by any of the following problems? 1. Little interest or pleasure in doing things: not at all 2. Feeling down, depressed, or hopeless: not at all 3. Trouble falling or staying asleep, or sleeping too much: not at all 4. Feeling tired or having little energy: not at all 5. Poor appetite or overeating: not at all 6. Feeling bad about yourself - or that you are a failure or have let yourself or your family down: not at all 7. Trouble concentrating on things, such as reading the newspaper or watching television: not at all 8. Moving or speaking so slowly that other people could have noticed. Or the opposite - being so fidgety or restless that you have been moving around a lot more than usual: not at all 9. Thoughts that you would be better off or of hurting yourself in some way: not at all Total score: 0 Depression Screening Interpretation: Negative Depression Screening Done: Yes 49097 - PHQ-9 Billing: Yes Source: Developed by Drs. Van Srivastava, Carley Thakur, Kt Seay and colleagues, with an educational harriet from [employer] Thrive Questionnaire Date Thrive assessed: 09/28/24 I am a: Patient What is your living situation today?: I have a steady place to live Within the past 12 months, did the food you bought not last and you didn't have the money to get more?: Never true Within the past 12 months, did you worry whether your food would run out before you got money to buy more?: Never true Do you have trouble paying for medicines?: No Do you have trouble getting transportation to medical appointments?: No Do you have trouble paying your heating and electricity bill?: No Do you have trouble taking care of your child, family member or friend?: No Do you have trouble with day-to-day activities such as bathing, preparing meals, shopping, managing finances, etc.?: No Are you currently unemployed and looking for a job?: No Are you interested in more education?: No Please select the resources that you would like help with: None Currently or been in a relationship where the following occur: No concerns reported THRIVE Score: 0 AUDIT C Alcohol Use Questionnaire (AUDIT-C) 1. How often do you have a drink containing alcohol?: Never Total Score: 0 Score Reviewed/Action Taken: No TOYA-7 AMB Questionnaire TOYA-7 Date TOYA - 7 assessed: 09/28/24 Feeling nervous, anxious, or on edge: 0 = Not at all Not being able to stop or control worryin = Not at all Worrying too much about different things: 0 = Not at all Trouble relaxin = Not at all Being so restless that it is hard to sit still: 0 = Not at all Becoming easily annoyed or irritable: 0 = Not at all Feeling afraid as if something awful might happen: 0 = Not at all Total TOYA-7 score (0-4 normal; 5-9 mild; 10-14 moderate; 15-21 severe): 0 Source: Developed by Drs. Van Srivastava, Carley Thakur, Kt Seay and colleagues, with an educational harriet from [employer] TOYA-7 Assessment Billing TOYA-7 Assessment Tool: TOYA-7 Assessment 18946 Review of Systems Const Denies poor appetite and Denies weakness Eyes Denies no additional complaints ENT Reports Normal hearing present, Denies dizziness, Denies nasal congestion, Denies tinnitus and Denies sore throat Card Denies chest pain, Denies syncope, Denies rapid heart rate and Denies dyspnea Resp Denies cough and Denies dyspnea GI Denies change in stool character, Reports constipation, Denies diarrhea, Denies nausea and Denies vomiting Denies urinary frequency, Denies difficulty voiding and Denies dysuria Neuro Reports Normal hearing present, Denies confusion, Denies dizziness, Denies syncope and Denies weakness Psych Denies confusion Physical exam (Primary Care) Vital Signs: Last Vital Signs Temp 97.5 F 09/28/24 16:23 Pulse 71 09/28/24 16:23 Resp 18 09/28/24 16:23 BP 126/80 09/28/24 16:23 Pulse Ox 97 09/28/24 16:23 Oxygen Delivery Method Room Air 09/28/24 16:23 BMI result Body Mass Index 22.5 Tobacco/Smoking Status: Tobacco use Status Tobacco use date assessed 09/28/24 09/28/24 16:25 Patient Tobacco Use Status Never used Tobacco 09/28/24 16:25 Tobacco use type Cigarette 09/28/24 16:25 e-Cigarette/Vaping Use Never Used 09/28/24 16:25 PHQ-9: PHQ-9 Score PHQ-9: Total score 0 09/28/24 16:25 Depression Screening Interpretation: Negative Thrive Assessment: Date of Thrive Assessment Date Thrive assessed 09/28/24 09/28/24 16:25 Currently or been in a relationship where the following occur: No concerns reported Const Other: Noted cobblestoning on the posterior pharyngeal wall General: No confusion Orientation/consciousness: No confusion HENMT Head: Yes normocephalic Ears: external ears normal and TM's normal bilaterally Face and sinus: Yes normal facial exam Mouth: moist mucous membranes Throat: Yes tonsils normal Eyes Conjunctivae: conjunctivae normal Pupils: Equal, round and reactive pupils present and Pupil accommodation reflex normal Direct Ophthalmoscopy: normal light reflex Neck Neck: No lymphadenopathy Thyroid: Thyroid normal Chest Chest palpation & inspection: normal inspection of the chest Resp Effort & Inspection: normal respiratory effort and no audible wheezes Auscultation: clear to auscultation bilaterally, no crackles, no wheezes and lung sounds not diminished Cardio Rate: regular rate Rhythm: regular rhythm Peripheral pulses: radial pulses present and dorsalis pedis present GI Palpation (GI): no masses Auscultation: normal bowel sounds and normoactive bowel sounds Rectal Exam - Female: deferred Skin General skin exam: no rashes or lesions noted Rashes: no rashes Neuro General: No confusion Cranial nerves: Yes Equal, round and reactive pupils present and Yes Normal hearing present Cognition (Neuro): normal cognition Gait exam (Neuro): Normal gait present Motor exam (neuro): 5/5 motor strength present throughout Deep tendon reflexes (DTR's): Right brachioradialis reflex intensity grade: 2+, Left brachioradialis reflex intensity grade: 2+, Right patellar reflex intensity grade: 2+ and Left patellar reflex intensity grade: 2+ Extrem General: No edema Coding Level of Care Code Est Pt Prev Care 40-64y(34306) Diagnoses Annual physical exam Z00.00 Malignant neoplasm of both ovaries C56.1; C56.2 Laterality: bilateral Anemia, unspecified type D64.9 Anemia type: unspecified type Atrial fibrillation I48.91 Hypertension I10 Hypercholesterolemia E78.00 Recurrent major depression F33.9 Additional Codes OTYA-7 Assessment Billing - TOYA-7 Assessment Tool: TYOA-7 Assessment 57071 ([id number]) PHQ-9 - 23919 - PHQ-9 Billing: Yes ([id number]) Assessment & Plan Assessment & Plan (1) Annual physical exam: Code(s): Z00.00 - Encounter for general adult medical examination without abnormal findings Category: Medical Plan: Patient is advised to eat healthy, keep well hydrated, keep active and have adequate sleep. 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 Was taken of Avastin due to side effects continue to monitor CT scan being performed under oncology. Patient had a recent CAT scan done of the abdomen which showed mass on the posterior stomach which is concerning for metastasis. (3) Anemia: Code(s): D64.9 - Anemia, unspecified Category: Medical Qualifiers: Anemia type: unspecified type Qualified Code(s): D64.9 - Anemia, unspecified Plan: Stable and continue to follow-up (4) Atrial fibrillation: Comment: 04/2024 hypokalemia and hypomagnesemia, secondary chemotherapy Code(s): I48.91 - Unspecified atrial fibrillation Category: Medical Plan: Stable (5) Hypertension: Code(s): I10 - Essential (primary) hypertension Category: Medical Plan: Continue with blood pressure medication. Decrease salt intake and exercise on metoprolol tartrate 50 mg twice a day amlodipine 5 mg once a day (6) Hypercholesterolemia: Code(s): E78.00 - Pure hypercholesterolemia, unspecified Category: Medical Plan: Avoid fried foods, chicken skin, eggs, butter margarine, pastries and meat. Be it pork or beef they have a lot of cholesterol LDL goal of less than 130 and triglyceride of less than 150. (7) Recurrent major depression: Comment: decline counselling Code(s): F33.9 - Major depressive disorder, recurrent, unspecified Category: Medical Plan: Continue with lorazepam as needed and venlafaxine. Plan History of Present Illness The patient is a 54-year-old female presenting with follow-up regarding an upper respiratory tract infection. She previously had a fever and was seen in June for this issue. Recently, the patient went to urgent care, where she was diagnosed with streptococcal pharyngitis, confirmed by a strep test, for which she was prescribed amoxicillin 500 mg twice a day. Despite medication, her symptoms persist with a scratchy throat and tickly cough, exacerbated by allergies. Her allergy symptoms are managed with Yeny when necessary. The patient also continues routine surveillance for ovarian cancer, having undergone a CT scan and mammogram, showing no evidence of disease recurrence. Her medical history includes ovarian cancer with previous bowel obstruction and adhsiolysis, atrial fibrillation treated with metoprolol and amlodipine, hypercholesterolemia, and major depressive disorder managed with venlafaxine. The patient experiences mild anemia, leukopenia, and thrombocytopenia from recent lab results, with previously managed Avastin treatment discontinued due to proteinuria. She reports regular bowel movements managed with a colostomy bag and denies any new systemic symptoms. Health Maintenance - Mammogram: Normal findings, recent mammogram done on September 24. - CT Scan: No evidence of disease on recent CT scan done on September 09. - Colonoscopy: Past due; typically done every 5 years as patient recall. - Vitamin D Supplementation: Discussed due to low levels. - Vaccinations: Pneumonia and tetanus up to date; shingles vaccine recommended due to immunosuppressed state. - Cholesterol Management: LDL goal of less than 130 mg/dL, triglycerides less than 150 mg/dL. - Blood Pressure Management: Stable with metoprolol tartrate 50 mg twice daily and amlodipine 5 mg once daily. - Hypercholesterolemia: Diet and lifestyle modifications emphasized. Social History - Substance Use: Denies alcohol and tobacco use. - Allergies: Reports allergy symptoms exacerbated by exposure to a pet dog. - Family History: Relative with a history of heart attack, lung, and breast ca ncer. - Physical Activity: Not explicitly discussed. - Employment, Housing, Education: Not explicitly discussed. Review of Systems - Respiratory: Reports scratchy throat, tickly cough. - General: Denies recent fever (reports previous episodes). - Gastrointestinal: Denies nausea, vomiting, or abdominal pain; regular bowel movements reported. - Genitourinary: Denies dysuria, frequency approximately 1-2 times nocturnally. - Neurological: Denies dizziness, syncope, headache. - Cardiovascular: Denies chest pain, dyspnea, or palpitations. - Allergic/Immunologic: Reports allergy symptoms consistent with allergens such as household pets. - Hematological: Anemia, leukopenia, thrombocytopenia acknowledged but not symptomatic. - Psychiatric: Managing major depressive disorder with venlafaxine. Physical Exam General: Cooperative, healthy appearing, comfortable, no acute distress and well developed Orientation: Patient oriented x3 Limitations: No limitations Head: Normal to inspection Ears: Hearing grossly normal bilaterally Nose: Normal external nose present Face and sinus: Normal facial exam Eyes: Appearance normal, both eyes and all related structures Neck: Normal visual inspection and Yes full ROM Respiratory: Normal respiratory effort and able to speak in complete sentences. Clear to auscultation bilaterally Cardiovascular: Regular rate and rhythm. Normal S1 and S2 GI: Normal to inspection. Soft to palpation and nontender Skin: No rashes or lesions noted Neuro: Patient oriented x3 Extremities: Normal to inspection Results - Labs: Mild anemia (hemoglobin 11.7), leukopenia (2.5), low platelet count (150). - CT Scan: No evidence of residual ovarian cancer. - Mammogram: No abnormal findings. - Vitamin D: Not measured at the visit but previously low as reported. Plan The follow-up for the upper respiratory tract infection indicates treatment for confirmed streptococcal pharyngitis with amoxicillin was appropriate, but with lingering symptoms, caution for allergen causes was recommended with Yeny as supportive care for allergies. The cancer remains under active surveillance, stable with recent imaging. Atria fibrillation is managed on metoprolol and blood pressure control with amlodipine remains stable. Cholesterol levels necessitate lifestyle modifications to reach target goals. Consideration of vitamin D supplementation was advised due to previously low levels. Vaccine review validates current standing, discussion of the shingles vaccine occurred. Surveillance of lab abnormalities such as anemia and leukopenia persists with ongoing review at hematology visits. Patient was informed and verbally consented to the use of an ambient scribe for clinic note documentation during this visit. Discussion Notes I discussed with the patient her current medications and management plans, explaining that ongoing monitoring of allergy symptoms is essential, considering her pet exposure. We reviewed her cancer surveillance CT and mammogram results, emphasizing the positive finding of no active disease. I addressed the discontinued use of Avastin due to proteinuria and its implications. For her atrial fibrillation and hypertension, metoprolol and amlodipine were maintained as effective, with specific targets discussed. Her management strategy for hypercholesterolemia through lifestyle changes was revisited. I recommended vitamin D supplementation due to deficiency and reinforced the importance of completing vaccinations, particularly shingles. Adjustments to medications were validated, and we concluded with a follow-up discussion to remain vigilant in tracking her blood levels of anemia and leukopenia. I encouraged immediate contact should symptoms persist or worsen, highlighting her symptom profile. Patient Instructions - Continue amoxicillin as prescribed. - Use Yeny for symptom relief from allergies. - Follow-up with suggested routine CT scans and mammograms. - Maintain metoprolol and amlodipine dosage for cardiovascular management. - Adhere to lifestyle changes promoting reduction in cholesterol and pressure targets. - Take recommended vitamin D supplements. - Plan for shingles vaccination to address immune considerations. - Keep regular ophthalmology visits up to date. - Drink enough water to prevent dehydration, especially in warmer weather. - Contact clinic if symptoms of upper respiratory infection persist or worsen. - Wash hands frequently to prevent infections. - Schedule routine tests and necessary follow-ups. Medications: New fexofenadine (Yeny Allergy) 180 mg PO DAILY 90 tabs 0RF
== END 2024-09-28 17:17 | disposition home or self-care (01) ==
LOC: HO.HMCH 16:11
PROVIDERS: PCP Internal Medicine; Visit Provider Internal Medicine
DX: Z00.00 Encounter for general adult medical examination without abnormal findings (principal); C56.1 Malignant neoplasm of right ovary; C56.2 Malignant neoplasm of left ovary; I48.91 Unspecified atrial fibrillation; D64.9 Anemia, unspecified; I10 Essential (primary) hypertension; E78.00 Pure hypercholesterolemia, unspecified; F33.9 Major depressive disorder, recurrent, unspecified

== ENCOUNTER → 2024-09-28 16:10 | Outpatient (BNVA) | payer BC, SELFPAY | PROVIDERS: PCP Internal Medicine; Visit Provider Internal Medicine | DX: Z00.00 Encounter for general adult medical examination without abnormal findings (principal); C56.1 Malignant neoplasm of right ovary; C56.2 Malignant neoplasm of left ovary; D64.9 Anemia, unspecified; I48.91 Unspecified atrial fibrillation; I10 Essential (primary) hypertension; E78.00 Pure hypercholesterolemia, unspecified; F33.9 Major depressive disorder, recurrent, unspecified; Z79.899 Other long term (current) drug therapy | CPT/HCPCS: 96127 ==

== ENCOUNTER 2025-04-25 16:07 | Outpatient (AMB) | payer BC, SELFPAY ==
--- NOTE | 2025-04-25 16:48 | MHC.PC.OV ---
Vital Signs 04/25/25 16:49 Height 5 ft 6 in Weight 144 lb 6 oz BMI 23.3 BP 142/82 H Blood Pressure Location Lt brachial Position Sitting Pulse 84 Pulse Source Pulse Oximeter Temp 97.1 F Temp Source Temporal Artery Scan Pulse Oximetry (%) 96 Oxygen Delivery Method Room Air Intake Visit Reasons: follow up Airborne Operations Required: No Industrial Hygenist: Not Required per policy Accompanied by: Self / Same As Patient Allergies bevacizumab (From Avastin) Adverse Reaction (Intermediate, Verified 04/25/25 16:49) urinary protein Medication List - Last Reconciled 04/25/25 by Lori Roberts MD amlodipine 5 mg PO DAILY lorazepam 1 mg PO TID PRN 90 days magnesium 400 mg PO DAILY venlafaxine ER 150 mg PO DAILY 90 days venlafaxine ER 75 mg PO DAILY 90 days Tobacco use date assessed: 04/25/25 Dental Screening Dental Screen Date: 09/28/24 HPI HPI Comments History of Present Illness Details History of Present Illness The patient is a 54-year-old individual with a past medical history of ovarian cancer, recurrent major depression, iron deficiency anemia, atrial fibrillation, hypertension, and hypercholesterolemia. The patient was last seen in August 2024. For the ovarian cancer, the patient is followed by hematology-oncology and is currently on a break from chemotherapy. Surveillance includes CT scans of the chest, abdomen, and pelvis every three months, with the last scan in March showing nodules had shrunk to 7 mm. The patient also has a PALB2 mutation and dense breasts, conferring an increased risk of breast cancer. Breast imaging is performed every 6 months, and a screening breast MRI was completed around January. The patient notes that blood pressure tends to become elevated while on chemotherapy and returns to normal when off treatment. The patient was seen in the emergency room in December for right lower extremity swelling, which was attributed to a bee sting in November. Amlodipine was prescribed at that time. Regarding medications, the patient is taking venlafaxine 225 mg, lorazepam as needed, and magnesium. The patient is not currently taking metoprolol or an allergy medication. Last blood work from June 2024 showed anemia with a hemoglobin of 11.7 and hematocrit of 35.7, leukopenia of 2.5, and thrombocytopenia of 150. Labs also revealed elevated triglycerides at 180, with normal vitamin D and thyroid function. For health maintenance, the patient is up to date with mammograms, and the last colonoscopy was in September 2021. Health Maintenance - Mammogram: Up to date. - Colonoscopy: Last performed in September 2021. - Ovarian cancer surveillance: The patient follows with hematology-oncology and receives CT scans of the chest, abdomen, and pelvis every 3 months. - Breast cancer surveillance: Due to a PALB2 mutation and dense breasts, receives breast imaging every 6 months, including a screening breast MRI. - Immunizations: The patient inquired about and was recommended to receive the influenza vaccine. - Shingles vaccine: A discussion was held regarding the shingles vaccine, which is recommended. 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 Results - Labs (June 2024): Anemia (Hgb 11.7, Hct 35.7), leukopenia (WBC 2.5), thrombocytopenia (platelets 150), elevated triglycerides (180), and normal thyroid function. - Imaging (CT chest/abdomen/pelvis, March): Revealed nodules had shrunk to 7 mm. - Imaging (Breast MRI, ~January): Completed, results pending review but patient reports they were normal. [facility] Medical History (Updated 04/25/25 @ 17:17 by Lori Roberts MD) Anxiety Ovarian cancer Ileostomy in place Preoperative examination Vitamin D deficiency Anemia Ovarian mass Hypercholesterolemia Depression Surgical History History of exploratory laparotomy (~08/25/20) Status post ELVIA-BSO (~04/13/20) Family History Mother Lung cancer Paternal Uncle Heart attack Paternal Grandmother Breast cancer Social History Housing: House Alcohol intake: never Patient Tobacco Use Status: Never used Tobacco Tobacco use type: Cigarette e-Cigarette/Vaping Use: Never Used Second Hand Smoke Exposure: No service: No Current occupational status: employed Sexual orientation: Straight/Heterosexual Gender identity: Female Cognitive needs: No Hearing needs: No Vision needs: Yes (Glasses) Female Reproductive History Menstrual Age of Menarche: 17 Questionnaire Thrive Questionnaire Date Thrive assessed: 09/28/24 I am a: Patient What is your living situation today?: I have a steady place to live Within the past 12 months, did the food you bought not last and you didn't have the money to get more?: Never true Within the past 12 months, did you worry whether your food would run out before you got money to buy more?: Never true Do you have trouble paying for medicines?: No Do you have trouble getting transportation to medical appointments?: No Do you have trouble paying your heating and electricity bill?: No Do you have trouble taking care of your child, family member or friend?: No Do you have trouble with day-to-day activities such as bathing, preparing meals, shopping, managing finances, etc.?: No Are you currently unemployed and looking for a job?: No Are you interested in more education?: No Please select the resources that you would like help with: None Currently or been in a relationship where the following occur: No concerns reported THRIVE Score: 0 TOYA-7 AMB Questionnaire TOYA-7 Date TOYA - 7 assessed: 09/28/24 Source: Developed by Drs. Van Srivastava, Carley Thakur, Kt Seay and colleagues, with an educational harriet from [employer]. Review of Systems Narrative Review of Systems - Cardiovascular: Reports blood pressure is elevated during chemotherapy but normalizes when off treatment. - Integumentary: Reports history of a bee sting in November, which led to subsequent right lower extremity swelling. Physical exam (Primary Care) Vital Signs: Last Vital Signs Temp 97.1 F 04/25/25 16:49 Pulse 84 04/25/25 16:49 BP 142/82 H 04/25/25 16:49 Pulse Ox 96 04/25/25 16:49 Oxygen Delivery Method Room Air 04/25/25 16:49 BMI result Body Mass Index 23.3 Tobacco/Smoking Status: Tobacco use Status Tobacco use date assessed 04/25/25 04/25/25 16:58 Patient Tobacco Use Status Never used Tobacco 04/25/25 16:58 Tobacco use type Cigarette 04/25/25 16:58 e-Cigarette/Vaping Use Never Used 04/25/25 16:58 Thrive Assessment: Date of Thrive Assessment Date Thrive assessed 09/28/24 04/25/25 16:58 Currently or been in a relationship where the following occur: No concerns reported Narrative Physical Exam - Vitals: Blood pressure 144/x mmHg. - Respiratory: Lungs are clear to auscultation bilaterally. Const General: alert; No acute distress Eyes Conjunctivae: conjunctivae normal Resp Auscultation: clear to auscultation bilaterally Cardio Rate: regular rate Rhythm: regular rhythm GI Inspection: Yes normal to inspection Extrem General: Yes normal to inspection and No edema Coding Level of Care Code Complex visit Add On G2211 Diagnoses Hypertension I10 Atrial fibrillation I48.91 Hypercholesterolemia E78.00 Malignant neoplasm of both ovaries C56.1; C56.2 Laterality: bilateral PALB2 positive Z15.89 Recurrent major depression F33.9 Assessment & Plan Assessment & Plan (1) Hypertension: Code(s): I10 - Essential (primary) hypertension Category: Medical Plan: Continue with blood pressure medication. Decrease salt intake and exercise on amlodipine 5 mg once a day metoprolol 50 mg twice a day (2) Atrial fibrillation: Comment: 04/2024 hypokalemia and hypomagnesemia, secondary chemotherapy Code(s): I48.91 - Unspecified atrial fibrillation Category: Medical Plan: Continuing to monitor (3) Hypercholesterolemia: Code(s): E78.00 - Pure hypercholesterolemia, unspecified Category: Medical Plan: Avoid fried foods, chicken skin, eggs, butter margarine, pastries and meat. 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 CT scan surveillance of the chest abdomen and pelvis every 3 months (5) PALB2 positive: Comment: MRI breast 01/2025 Code(s): Z15.89 - Genetic susceptibility to other disease Category: Medical Plan: Patient was advised to get an MRI of the breast (6) Recurrent major depression: Comment: decline counselling Code(s): F33.9 - Major depressive disorder, recurrent, unspecified Category: Medical Plan: Continue with present medication Plan Plan Patient was informed and verbally consented to the use of an ambient scribe for clinic note documentation during this visit. 1. Hypertension The patient's blood pressure was elevated at 144/x mmHg during the visit. The patient reports that blood pressure is often higher during chemotherapy cycles. The plan is to start amlodipine 5 mg once daily. A refill for amlodipine will be sent to the patient's preferred pharmacy. The patient is not currently taking the previously prescribed metoprolol. Blood pressure will continue to be monitored. 2. History Of Ovarian Cancer / Health Maintenance The patient is on a break from chemotherapy and is followed by hematology-oncology. Plan is to continue surveillance with CT scans of the chest, abdomen, and pelvis every [address] scan is scheduled in three months. 3. Breast Cancer Surveillance Due to a PALB2 mutation and dense breasts, the patient is at increased risk for breast cancer. The patient recently completed a breast MRI as part of biannual screening. The plan is to continue this surveillance every 6 months. 4. Pancytopenia And Hypercholesterolemia Last labs from June 2024 showed pancytopenia and elevated triglycerides. A request for fasting blood work will be placed for the patient to complete in about two months. The lipid panel goals are an LDL less than 130 and triglycerides less than 150. 5. Preventive Care: Immunizations The patient requested an influenza vaccine. An attempt was made to administer it during the visit, but due to staffing, it was not possible. The patient was advised to obtain the flu shot at a pharmacy, such as [facility], and not to delay. The shingles vaccine was also discussed, and the patient was informed it is available at the pharmacy if the patient chooses to receive it. Discussion Notes I reviewed the patient's history and recent clinical course. We discussed the blood pressure, which was elevated today at 144/x mmHg. I acknowledged the patient's observation that it fluctuates with chemotherapy and recommended starting amlodipine 5 mg daily. I confirmed the patient's ongoing cancer surveillance plan, including CT scans every 3 months and breast MRIs every 6 months, and noted the recent improvement seen on the last CT scan. I placed an order for fasting labs to be done in two months to re-evaluate blood counts and lipids, as the last comprehensive panel was in June. We also discussed immunizations. I advised the patient to get the flu shot soon, either here at a later date or at a pharmacy. I educated the patient on the benefits of the shingles vaccine in preventing a painful shingles outbreak and informed the patient that it is available at the pharmacy. Patient Instructions - Start taking amlodipine 5 mg once per day for your blood pressure. - A prescription refill for your amlodipine has been sent to the [facility] on [address]. - Please get your fasting blood work done in about two months. - You should get a flu shot as soon as possible. - You can get this at our clinic on another day or at a local pharmacy. - If you choose to, the shingles vaccine is available for you at the pharmacy. - Continue to follow up with your hematology-oncology doctor for your cancer care. - Your next CT scan for surveillance will be in three months. Orders: Orders Thyroid Stimulating Hormone 2 Months Z15.89 - Genetic susceptibility to other disease Lipid Panel 2 Months E78.00 - Pure hypercholesterolemia, unspecified, Z15.89 - Genetic susceptibility to other disease Vitamin B12 and Folate 2 Months Z15.89 - Genetic susceptibility to other disease Vitamin D 25-OH Total 2 Months Z15.89 - Genetic susceptibility to other disease Hemoglobin A1c 2 Months Z15.89 - Genetic susceptibility to other disease IRON PROFILE 2 Months Z15.89 - Genetic susceptibility to other disease Complete Blood Count Auto Diff 2 Months Z15.89 - Genetic susceptibility to other disease Free T4 (Free Thyroxine) 2 Months Z15.89 - Genetic susceptibility to other disease Comprehensive Met. Panel 2 Months Z15.89 - Genetic susceptibility to other disease UA CC w/rflx Micro + Cult 2 Months R30.0 - Dysuria, Z15.89 - Genetic susceptibility to other disease Ferritin 2 Months Z15.89 - Genetic susceptibility to other disease Reticulocyte Count 2 Months Z15.89 - Genetic susceptibility to other disease Medications: Refilled amlodipine 5 mg PO DAILY 90 tabs 2RF I10 - Essential (primary) hypertension
[2025-04-25 16:49] VITALS: BP 142/82; PULSE 84; TEMP 36.2; O2SAT 96; BMI 23.3
--- OUTSIDE RECORDS SUMMARY | 2025-04-25 20:21 | XMS_ITS | Clinical Summary ---
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 [...] other symptoms. HTN (hypertension) 04/08/2024 Overview (04/12/2024): [place] to be related to her chemotherapy plan Assessment & Plan (04/12/2024 8:46 AM EST): The patient's blood pressure is well-controlled on her combination of beta- tavon and calcium channel tavon. Continue the same. Medical History Medical History Date Comments Hypomagnesemia Hypokalemia Headache Primary high grade serous ad enocarcinoma of ovary (CMS/HCC V24, CMS/HCC V28) Anxiety and depression Social History Tobacco Use Types Packs/Day Years Used Date Smoking Tobacco: Never Smokeless Tobacco: Never Tobacco Cessation:Counseling Given: Not Answered Alcohol Use Standard Drinks/Week Comments Never 0 (1 standard drink = 0.6 oz pur e alcohol) Comments Unknown Sex and Gender Information Value Date Recorded Sex Assigned at Not on file Legal Sex Female 1:39 PM EDT Gender Identity Not on file Sexual Orientation Not on file Obstetrics History Last Filed [...] Last Done Comments Breast Cancer Screening 1968 Colorectal Cancer Screening: Colonoscopy 1968 Hepatitis B Vaccines (1 of 3 - 19+ 3-dose series) 1987 Zoster Vaccines (1 of 2) 1987 Cervical Cancer Screening: Pap Smear 1989 Pneumococcal Vaccine: 50+ Years (2 of 2 - PCV) 11/20/2022 11/20/2021 Cholesterol Screening (Lipid Panel) 03/31/2024 HIV Screening 03/31/2024 Hepatitis C Screening 03/31/2024 Social Influencers of Health Screening 03/31/2024 Hypertension/CHF/CAD Annual BMP Blood Test 04/08/2024 Depression Screening 06/02/2024 COVID-19 Vaccine (4 - 2024- season) 2025 06/15/2021, 11/05/2020, 10/15/2020 Influenza Vaccine (#1) 2025 , 03/03/2023, 05/13/2022, Additional history exists DTaP,Tdap,and Td Vaccines (2 - Td or Tdap) 12/06/2029 12/07/2019 RSV Immunization Adult Patients (1 - 1-dose 75+ series) 2043 HIB Vaccines Aged Out No longer eligi [...] patient's age to complete this topic Meningococcal B Vaccine Aged Out No l onger eligible based on patient's age to complete this topic RSV Immunization Patients Under 20 months Aged Out No longer eligible based on patient's age to complete this topic Varicella Vaccines Aged Out No longer eligible based on patient's age to complete this topic Insurance [employer] Care Teams Oil [employer] P[employer] Tester Relationship Specialty Start Date End Date Lori Roberts MD [address] [place] [address] [address] [facility] [place] [address] PCP - General Internal Medicine 03/30/24
--- OUTSIDE RECORDS SUMMARY | 2025-04-25 20:21 | XMS_ITS | Clinical Summary ---
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 4 Active prochlorperazin e (COMPAZINE) 10 MG tablet Take 10 mg by mouth. 4 Active lidocaine-prilo natividad (EMLA) cream APPLY TO [facility] SITE 30-60 MIN PRIOR TO EACH CHEMOTHERAPY SESSION 4 Active dexAMETHasone (DECADRON) 4 MG tablet Take 8 mg by mouth. 4 Active venlafaxine (EFFEXOR-XR) 75 MG 24 hr capsule Take 1 capsule by mouth every morning. 4 Active LORazepam (ATIVAN) 0.5 MG tablet Take 0.5 mg by mouth every 6 (six) hours as needed for anxiety. Active aspirin-acetami nophen-caffeine (EXCEDRIN MIGRAINE) 250-250-65 mg per tablet Take 1 tablet by mouth every 6 (six) hours as needed for pain (specific location in comments). Active venlafaxine (EFFEXOR) 50 MG tablet Take 50 mg by mouth 2 (two) times a day. Active potassium chloride (MICRO-K) 10 mEq CR capsule Take 10 mEq by mouth 2 (two) times a day. Active Social History Tobacco Use Types Packs/Day Years Used Date Smoking Tobacco: Never Assessed Child or Family Care Answer Date Record ed Do you have problems with on e of the following making it difficult for you to work, study, or receive health care? No 07/07/2023 Education Answer Date Recorded Are you interested in help w ith more adult education (for example, completing high school, GED, job training, learning the [place] language, technical skills, or developing parenting skills)? No 07/07/2023 Are you concerned about learning? Not on file 07/07/2023 No 07/07/2023 Yes 07/07/2023 Food Answer Date Recorded Within the past 6 months we worried whether our food would run out before we got money to buy more. Never True 07/07/2023 Within the past 6 months the food we bought just didn't last and we didn't have enough money to get more. Never True Residential Stability Answer Date Recor ded What is your housing situation today? I have theresa sing 07/07/2023 How many times have you move d in the past 12 months? Zero (I did not move) 07/07/2023 Paying for Meds Answer Date Recorded Do you have trouble paying for medicines? No 07/07/2023 Paying Utility Bills Answer Date Record ed Do you have trouble paying your heating or elect ricity bill? No 07/07/2023 Transportation Answer Date Recorded Has the lack of transportati on kept you from medical appointments or from getting medications? No 07/07/2023 Digital Access Answer Date Recorded No 06/26/2023 No 06/26/2023 Reliable internet access at home? Not on file 06/26/2023 Device with a working camera? Not on file Comments Unknown Sex and Gender Information Value Date Recorded Sex Assigned at Female 06/12/2023 5:30 PM EST Legal Sex Female 5:29 PM EST Gender Identity Female 06/12/2023 5:30 PM EST Sexual Orientation Straight 06/12/2023 5: 30 PM EST Last Filed Vital Signs Vital Sign Reading Time Taken Comments Blood Pressure 138/62 07/08/2023 2:17 PM EST Pulse 73 07/08/2023 2:17 PM EST Temperature 36.2 C (97.1 F) 07/08/2023 2:17 PM EST Respiratory Rate 18 07/08/2023 2:17 PM EST Oxygen Saturation 94% 07/08/2023 2:17 PM EST Inhaled Oxygen Concentration - - Weight 67.7 kg (149 lb 4 oz) 07/08/2023 2:17 PM EST Height 167.3 cm (5' 5.87 ) 07/08/2023 2:17 PM ES T Body Mass Index 24.19 07/08/2023 2:17 PM EST Plan of Treatment Health Maintenance Due Date Last Done Comments LIPID PANEL 1968 POTASSIUM LEVEL 1968 DEPRESSION SCREENING 1980 SMOKING Hx and SMOKELESS TOBACCO SCREENING 1981 HEPATITIS C SCREENING 1986 HIV ONE-TIME SCREENING (18-65 YEARS) 1986 PAP SMEAR 1989 MAMMOGRAM 2008 COLOGUARD 2013 COLONOSCOPY 2013 COLORECTAL CANCER SCREENING 2013 FIT TEST 2013 FOBT 2013 SIGMOIDOSCOPY 2013 VIRTUAL COLONOSCOPY 2013 ZOSTER VACCINES (1 of 2) 2018 PNEUMOCOCCAL VACCINES (50+ years) (2 of 2 - PCV) 11/20/2022 11/20/2021 INFLUENZA VACCINE (#1) 2024 , 05/13/2022, 03/09/2021, Additional history exists COVID-19 VACCINE ( season) 2025 06/15/2021, 11/05/2020, 10/15/2020 Adult Td,Tdap Booster 12/06/2029 12/07/2019 RSV VACCINE (1 - 1-dose 75+ series) 2043 HEPATITIS A VACCINES Aged Out No long er eligible based on patient's age to complete this topic HIB VACCINES Aged Out No longer eligi ble based on patient's age to complete this topic MENINGOCOCCAL VACCINES (ACWY) Aged Out No longer eligible based on patient's age to complete this topic MENINGOCOCCAL VACCINES (B) Aged Out N o longer eligible based on patient's age to complete this topic Medical Devices Not on file Insurance [facility] PPO EPO [facility] PPO EPO [facility] PPO [facility]PO [facility] PPO EPO [facility] PPO EPO Care Teams Pilot Boat Captain Relationship Specialty Start Date End Date Lori Roberts MD [address] [place] [phone] PCP - General Internal Medicine 06/12/23 Darlene Ashraf MD [address] [place] [address] Referring Physician Obstetrics and Gynecology 06/12/23 Additional Source Comments The information contained in this document represents components of the legal health record. It is not the complete legal health record.[facility]
== END 2025-04-25 17:28 | disposition home or self-care (01) ==
LOC: HO.HMCH 16:07
PROVIDERS: PCP Internal Medicine; Visit Provider Internal Medicine
DX: I10 Essential (primary) hypertension (principal); I48.91 Unspecified atrial fibrillation; E78.00 Pure hypercholesterolemia, unspecified; C56.1 Malignant neoplasm of right ovary; C56.2 Malignant neoplasm of left ovary; Z15.89 Genetic susceptibility to other disease; F33.9 Major depressive disorder, recurrent, unspecified